=== PATIENT | female | born 1960 | race Caucasian/White ===

== ENCOUNTER → 2016-12-30 | Outpatient (CLI) | payer OTHER ==
--- NOTE | 2016-12-30 13:18 | XR ---
EXAMINATION TYPE: XR chest 2V DATE OF EXAM: 12/30/2016 COMPARISON: Chest x-ray April 21, 2016. HISTORY: Shortness of breath. TECHNIQUE: Frontal and lateral views of the chest are obtained. FINDINGS: There is no focal air space opacity, pleural effusion, or pneumothorax seen. The cardiac silhouette size is within normal limits. There is atherosclerotic change in aortic knob. The osseous structures are intact. IMPRESSION: No acute cardiopulmonary process currently.
[2016-12-31 14:19] LABS: Alternaria alternata IgE <0.35 kU/L (<0.35); Asperg. fumagatus IgE <0.35 kU/L (<0.35); Asperg. fumagatus IgE Class CLASS 0; Birch(Com.Silvr) IgE Class CLASS 0; Cat Epith & Dander IgE <0.35 kU/L (<0.35); Cat Epith & Dander IgE Class CLASS 0; Clad herbarum IgE <0.35 kU/L (<0.35); Clad herbarum IgE Class CLASS 0; Common Ragweed IgE Class CLASS 0; Dermato. Pteronyssinus Class CLASS 0; Dermato. Pteronyssinus IgE <0.35 kU/L (<0.35); Dermato. farinae IgE <0.35 kU/L (<0.35); Dermato. farinae IgE Class CLASS 0; IgE (Allergen) 56.1 IU/mL (<114.0); Maple (Box Elder) IgE <0.35 kU/L (<0.35); Maple (Box Elder) IgE Class CLASS 0; Mountain Cedar IgE <0.35 kU/L (<0.35); Mountain Cedar IgE Class CLASS 0; Mouse Urine IgE Class CLASS 0; Mouse Urine Proteins,IgE <0.35 kU/L (<0.35); Mulberry IgE Class CLASS 0; Nettle IgE <0.35 kU/L (<0.35); Nettle IgE Class CLASS 0; Oak IgE <0.35 kU/L (<0.35); Penicillium notatum IgE Class CLASS 0; Rough Marshelder IgE <0.35 kU/L (<0.35); Rough Marshelder IgE Class CLASS 0; Timothy Grass IgE <0.35 kU/L (<0.35); Timothy Grass IgE Class CLASS 0; White Ash IgE Class CLASS 0
== END | disposition home or self-care (01) ==
LOC: LABWHC1 12:11
PROVIDERS: ATTEND Internal Medicine
DX: R06.02 Shortness of breath (principal); B44.89 Other forms of aspergillosis
CPT/HCPCS: 36415; 71020; 82785; 86001; 86003; 86606; 86609

== ENCOUNTER 2017-02-06 07:02 | Day surgery (SDC) | payer OTHER ==
[2017-02-03 10:15] VITALS: BMI 33.3
[~2017-02-06 07:02] MED LIST: DEXAMETHASONE SOD PHOSPHATE 10 MG/ML 1 ML VIAL IV ONE; HYDROmorphone 1 MG/ML 1 ML SYRINGE IVP PRN; LACTATED RINGERS 1,000 ML IV SCH; MIDAZOLAM 2 MG/2 ML VIAL IV PRN; ONDANSETRON 4 MG/2 ML VIAL IVP ONE; Pre Op ABX Message 1 EACH MISC MISCELLANE ONE; SCOPOLAMINE 1.5MG/72HR PATCH TRANSDERM ONE
[2017-02-06] MEDS ORDERED: LIDOCAINE 1% 20 ML VIAL (10MG/ML) FOR IV START INTRADERMA ONE (07:29)
[2017-02-06] MEDS ORDERED: SODIUM CHLORIDE 0.9% 100 ML with ceFAZolin 2,000 MG IV ONE ×2 (07:36)
[2017-02-06] MEDS ORDERED: PROPOFOL 10 MG/ML 20 ML VIAL IV ONE (07:36)
[2017-02-06] MEDS ORDERED: LIDOCAINE 1% INJ 10MG/ML (20 ML MDV) ONE (07:36)
[2017-02-06] MEDS ORDERED: MIDAZOLAM 2 MG/2 ML VIAL ONE (07:36)
[2017-02-06] MEDS ORDERED: CLINDAMYCIN 600 MG in SODIUM CHLORIDE 0.9% 1,000 ML IRRIGATION ONE (07:36)
[2017-02-06] MEDS ORDERED: KETOROLAC 30 MG/ML 1 ML VIAL ONE (07:36)
[2017-02-06] MEDS ORDERED: fentaNYL (PF) 50 MCG/ML 2 ML AMP ONE (07:36)
[2017-02-06] MEDS ORDERED: SUCCINYLCHOLINE CHLORIDE 100 MG/5 ML SYR IV ONE (07:36)
[2017-02-06 08:16] VITALS: TEMP 97.6
[2017-02-06] MEDS ORDERED: LACTATED RINGERS 1,000 ML IV ONE ×2 (08:30)
[2017-02-06] MEDS ORDERED: HYDROcodone/APAP 5-325MG 1 EACH TAB PO ONE (09:10)
[2017-02-06 09:13] VITALS: RESP 18
[2017-02-06 09:36] VITALS: BP 107/60; PULSE 84
--- NOTE | 2017-02-06 18:56 | OP ---
DATE OF SURGERY: 02/06/2017 SURGEON: Neo Curry DO EARTH SCIENCE TEACHER: none PREOPERATIVE DIAGNOSIS: Unresolved hematoma/seroma of the right medial aspect of the leg. POSTOPERATIVE DIAGNOSIS: Unresolved hematoma/seroma of the right medial aspect of the leg. PROCEDURE: Incision and drainage of the hematoma/seroma, right medial leg, with Eleazar drain insertion. PROCEDURE: Patient was taken to the operative suite and placed in supine position. General inhalation anesthesia was performed by the department of anesthesiology. A Betadine prep was carried out over the right leg and sterile drapes were applied in the usual manner. A 1-inch incision was developed over the anteromedial aspect of the hematoma. Blunt dissection through subcutaneous tissue performed. Culture and sensitivity were obtained. Irrigation with antibiotic solution was carried out. An incision of seroma and hematoma was carried out at this time. No sign of infection at this time. [place] drain was inserted next to the wound. Betadine, Adaptic, ABD and Webril compression dressing was applied. Patient was transferred to the recovery room in satisfactory postoperative condition. GROSS PATHOLOGY: There was evidence of a hematoma/seroma, anteromedial aspect of the right leg in the tibial area. Placed on antibiotics at the time of discharge. TAMICA
== END 2017-02-06 09:57 | disposition home or self-care (01) ==
LOC: OR 07:02
PROVIDERS: ATTEND Orthopaedic Surgery
DX: S80.01XA Contusion of right knee, initial encounter (principal); X58.XXXA Exposure to other specified factors, initial encounter; Z96.653 Presence of artificial knee joint, bilateral; E78.5 Hyperlipidemia, unspecified; F32.9 Major depressive disorder, single episode, unspecified; J98.4 Other disorders of lung; G40.909 Epilepsy, unspecified, not intractable, without status epilepticus; I11.9 Hypertensive heart disease without heart failure; G47.33 Obstructive sleep apnea (adult) (pediatric); J44.9 Chronic obstructive pulmonary disease, unspecified; E89.0 Postprocedural hypothyroidism; K25.9 Gastric ulcer, unspecified as acute or chronic, without hemorrhage or perforation; K21.9 Gastro-esophageal reflux disease without esophagitis; Z85.42 Personal history of malignant neoplasm of other parts of uterus; Z79.82 Long term (current) use of aspirin; Z79.899 Other long term (current) drug therapy; Z88.5 Allergy status to narcotic agent; Z88.0 Allergy status to penicillin; Z91.048 Other nonmedicinal substance allergy status; F17.200 Nicotine dependence, unspecified, uncomplicated
CPT/HCPCS: 87070; 87205; 87075; 10140; J2250; J1100; J2405; J0690; J2001; J3010; J1885; J0330; J2704

== ENCOUNTER → 2017-03-26 | Outpatient (CLI) | payer OTHER ==
--- NOTE | 2017-03-26 10:13 | CT ---
EXAMINATION TYPE: CT brain wo con DATE OF EXAM: 03/26/2017 COMPARISON: MRI brain report dated 07/30/2010 HISTORY: Left-sided numbness with prior CVA CT DLP: 1147 mGycm. Automated Exposure Control for Dose Reduction was Utilized. TECHNIQUE: CT scan of the head is performed without contrast. FINDINGS: There is no acute intracranial hemorrhage, mass effect, or midline shift identified. The previously described few areas of nonspecific white matter change are not visualized on CT. No focal areas of encephalomalacia are seen from the patient's reported prior CVA. The ventricles and sulci ar e within normal limits in size. The globes are intact and the visualized sinuses are clear. No suspi cious extra-axial fluid collection is seen. Minimal atherosclerosis is seen of the intracranial vascu lature. Incidental note is made of a partial empty sella. IMPRESSION: No acute intracranial hemorrhage, mass effect, or midline shift is seen. No evidence of acute territorial infarct. MRI could be performed for further evaluation if clinically indicated.
== END | disposition home or self-care (01) ==
LOC: RADCTMAIN 09:23
PROVIDERS: ATTEND Internal Medicine
DX: G45.9 Transient cerebral ischemic attack, unspecified (principal)
CPT/HCPCS: 70450

== ENCOUNTER → 2017-04-28 | Outpatient (CLI) | payer OTHER ==
--- NOTE | 2017-04-28 08:49 | US ---
EXAMINATION TYPE: US carotid duplex BILAT DATE OF EXAM: 04/28/2017 COMPARISON: US, MR CLINICAL HISTORY: 56-year-old female G40.209 Localized Symptomatic epilepsy w cmplx. Left sided numbn ess. TECHNIQUE: Carotid duplex ultrasound examination. In the right Doppler criteria was utilized. FINDINGS: Grayscale images show moderate atherosclerotic changes at the right greater than left bifurcations. EXAM MEASUREMENTS: RIGHT: Peak Systolic Velocity (PSV) cm/sec ----- Right CCA: 63.8 ----- Right ICA: 136.6* ----- Right ECA: 87.5 ICA/CCA ratio: 2.1 RIGHT: End Diastole cm/sec ----- Right CCA: 24.6 ----- Right ICA: 49.4 ----- Right ECA: 17.1 LEFT: Peak Systolic Velocity (PSV) cm/sec ----- Left CCA: 75.6 ----- Left ICA: 102.9 ----- Left ECA: 125.3 ICA/CCA ratio: 1.4 LEFT: End Diastole cm/sec ----- Left CCA: 28.4 ----- Left ICA: 40.2 ----- Left ECA: 15.5 VERTEBRALS (direction of flow): Right Vertebral: Antegrade Left Vertebral: Antegrade Rhythm: Normal IMPRESSION: Moderate atherosclerotic changes at both bifurcations. Measurements suggest AP moderate (50-69%) sten osis at the proximal right ICA. Criteria for Assigning % of Stenosis / Diameter reduction (Estimation based on the indirect measurements of the internal carotid artery velocities (ICA PSV). 1. Normal (no stenosis)=ICA PSV < 125 cm/s: ratio < 2.0: ICA EDV<40 cm/s. 2. Less than 50% stenosis=ICA PSV < 125 cm/s: ratio < 2.0: ICA EDV<40 cm/s. 3. 50 to 69% stenosis=ICA PSV of 125 to 230 cm/s: ration 2.0 ? 4.0: ICA EDV 40-100 cm/s. 4. Greater than 70% stenosis to near occlusion= ICA PSV > 230 cm/s: ratio > 4.0: ICA EDV > 100 cm/s. 5. Near occlusion= ICA PSV velocities may be low or undetectable: variable ratio and ICA EDV. 6. Total occlusion=unable to detect flow.
== END | disposition home or self-care (01) ==
LOC: RADUSWWP 07:45
PROVIDERS: ATTEND Psychiatry & Neurology Neurology
DX: I65.23 Occlusion and stenosis of bilateral carotid arteries (principal); G40.209 Localization-related (focal) (partial) symptomatic epilepsy and epileptic syndromes with complex partial seizures, not intractable, without status epilepticus
CPT/HCPCS: 93880

== ENCOUNTER → 2017-05-18 | Outpatient (CLI) | payer OTHER ==
[2017-05-18 07:49] LABS: CH 29.2; CHCM 31.8; HCT 44.9 % (34.0-46.0); HDW 2.56; HGB 14.3 gm/dL (11.4-16.0); MCH 29.3 pg (25.0-35.0); MCHC 31.8 g/dL (31.0-37.0); MCV 92.1 fL (80.0-100.0); Mean Platelet Volume 8.7; RBC 4.87 m/uL (3.80-5.40); RDW 14.6 % (11.5-15.5); WBC 4.7 k/uL (3.8-10.6)
[2017-05-18 08:36] LABS: ALT 31 U/L (9-52); AST 20 U/L (14-36); Alkaline Phosphatase 66 U/L (38-126); Anion Gap 8 mmol/L; Blood Urea Nitrogen 17 mg/dL (7-17); Calcium 9.6 mg/dL (8.4-10.2); Carbon Dioxide 25 mmol/L (22-30); Chloride 108 mmol/L (98-107); Cholesterol 224 mg/dL (<200); Glucose 92 mg/dL (74-99); HDL Cholesterol 48 mg/dL (40-60); Non-African American GFR(MDRD) >60 (>60 ml/min/1.73 sqM); Potassium 4.6 mmol/L (3.5-5.1); Sodium 141 mmol/L (137-145); Total Bilirubin 0.2 mg/dL (0.2-1.3); Total Protein 6.9 g/dL (6.3-8.2)
--- NOTE | 2017-05-18 11:29 | MR ---
EXAMINATION TYPE: MR angio neck wo/w con DATE OF EXAM: 05/18/2017 COMPARISON: Ultrasound 04/28/2017 HISTORY: Left side numbness, Abnormal Carotid Duplex scan CONTRAST: Standard multiplanar, multisequence MRI departmental protocol utilizing 9.5 mL intravenous Gadavist g adolinium contrast. FINDINGS: Exam is severely limited by artifact and secondary to motion. Grossly the right vertebral artery is dominant. Grossly the common carotid arteries appear to be jane nt could not accurately assess for stenosis given the amount of artifact. Exam is felt to be nondiagn ostic. Suspect there is atherosclerotic plaque at the origin of both internal carotid arteries. Due t o the motion artifact and not accurately assess the degree of stenosis. IMPRESSION: Nondiagnostic exam due to motion artifact.
--- NOTE | 2017-05-18 11:41 | MR ---
EXAMINATION TYPE: MR brain wo con DATE OF EXAM: 05/18/2017 COMPARISON: NONE HISTORY: Left side numbness, Abnormal Carotid Duplex scan Technique: T1-weighted sagittal, T2, FLAIR, and diffusion axial, and T2 coronal coronal views of the brain are submitted. Exam limited by motion artifact. FINDINGS: Exam limited by motion artifact. There is no evidence of acute ischemia. The ventricles, basal cisterns, and sulci overlying the conv exities are consistent with the patient's age. There is no mass effect. Craniocervical junction maintained. Sella turcica has a normal appearance. No cerebellopontine angle mass. Changes of chronic right mastoiditis noted. Changes of chronic sinusi tis noted. There are a few scattered (approximately 7) areas of abnormal signal the white matter measuring less than 5 mm. Findings are nonspecific. IMPRESSION: 1. Limited exam due to motion artifact demonstrates no obvious acute intracranial process. 2. Minimal nonspecific white matter changes. Differential diagnosis includes migraine headaches, hype rtension, remote microvascular ischemia. Demyelinating process not entirely excluded.
== END | disposition home or self-care (01) ==
LOC: RADMRIMAIN 07:13
PROVIDERS: ATTEND Psychiatry & Neurology Neurology
DX: R90.89 Other abnormal findings on diagnostic imaging of central nervous system (principal); G40.209 Localization-related (focal) (partial) symptomatic epilepsy and epileptic syndromes with complex partial seizures, not intractable, without status epilepticus; I11.9 Hypertensive heart disease without heart failure; R73.9 Hyperglycemia, unspecified; K21.0 Gastro-esophageal reflux disease with esophagitis; R20.0 Anesthesia of skin; R94.39 Abnormal result of other cardiovascular function study; Z00.00 Encounter for general adult medical examination without abnormal findings
CPT/HCPCS: 84439; 80061; 80053; 80177; 84443; 85027; 83036; 70549; 70551; 36415; A9581

== ENCOUNTER → 2017-08-28 | Outpatient (CLI) | payer OTHER ==
--- NOTE | 2017-08-28 17:50 | ECHOF ---
Referral Reason:Z86.73 Hx of Transiant ischemic attack MEASUREMENTS -------- HEIGHT: 157.5 cm WEIGHT: 93.0 kg BP: RVIDd: 3.0 cm (< 3.3) IVSd: 1.1 cm (0.6 - 1.1) LVIDd: 4.0 cm (3.9 - 5.3) LVPWd: 1.0 cm (0.6 - 1.1) IVSs: 1.3 cm LVIDs: 3.0 cm LVPWs: 1.4 cm LA Diam: 2.8 cm (2.7 - 3.8) LAESV Index (A-L): 33.26 ml/m Ao Diam: 3.0 cm (2.0 - 3.7) AV Cusp: 1.1 cm (1.5 - 2.6) LA Diam: 3.1 cm (2.7 - 3.8) MV EXCURSION: 22.907 mm (> 18.000) MV EF SLOPE: 78 mm/s (70 - 150) EPSS: 0.6 cm MV E Levi: 0.63 m/s MV DecT: 212 ms MV A Levi: 0.68 m/s MV E/A Ratio: 0.93 AV maxP.80 mmHg AV meanP.76 mmHg RAP: 5.00 mmHg RVSP: 19.96 mmHg FINDINGS -------- Sinus rhythm. This was a technically adequate study. The left ventricular size is normal. There is mild concentric left ventricular hypertrophy. Overa ll left ventricular systolic function is normal with, an EF between 55 - 60 %. The right ventricle is normal in size. LA is midly dilated 29-33ml/m2. The right atrial size is normal. The aortic valve was not well visualized. Peak/mean gradient across the Aortic Valve is 20.80mmHg / 10.76mmHg. Can't exclude possible Bicuspid Aov. The mitral valve leaflets are mildly thickened. There is trace to mild mitral regurgitation. Mild tricuspid regurgitation present. There is no evidence of pulmonary hypertension. The right v entricular systolic pressure, as measured by Doppler, is 19.96mmHg. There is no pulmonic regurgitation present. The aortic root size is normal. There is no pericardial effusion. CONCLUSIONS -------- 1. Sinus rhythm. 2. The left ventricular size is normal. 3. There is mild concentric left ventricular hypertrophy. 4. Overall left ventricular systolic function is normal with, an EF between 55 - 60 %. 5. LA is midly dilated 29-33ml/m2. 6. The aortic valve was not well visualized. 7. Peak/mean gradient across the Aortic Valve is 20.80mmHg / 10.76mmHg. 8. Can't exclude possible Bicuspid Aov. 9. The mitral valve leaflets are mildly thickened. 10. There is trace to mild mitral regurgitation. 11. Mild tricuspid regurgitation present. 12. There is no evidence of pulmonary hypertension. 13. There is no pulmonic regurgitation present. 14. The aortic root size is normal. 15. There is no pericardial effusion. CONTROLLED ATMOSPHERIC FURNACE BRAZER: Rozina Christensen RDCS
== END | disposition home or self-care (01) ==
LOC: RADECHMAIN 13:01
PROVIDERS: ATTEND Psychiatry & Neurology Neurology
DX: Z09 Encounter for follow-up examination after completed treatment for conditions other than malignant neoplasm (principal); I08.1 Rheumatic disorders of both mitral and tricuspid valves; Z86.73 Personal history of transient ischemic attack (TIA), and cerebral infarction without residual deficits
CPT/HCPCS: 93306

== ENCOUNTER → 2017-10-12 | Outpatient (CLI) | payer OTHER ==
[2017-10-14 11:48] LABS: Alt. alternata IgE Class CLASS 0; Alternaria alternata IgE <0.35 kU/L (<0.35); Asperg. fumagatus IgE <0.35 kU/L (<0.35); Asperg. fumagatus IgE Class CLASS 0; Bermuda Grass IgE <0.35 kU/L (<0.35); Birch(Com.Silvr) IgE <0.35 kU/L (<0.35); Birch(Com.Silvr) IgE Class CLASS 0; Cat Epith & Dander IgE <0.35 kU/L (<0.35); Cat Epith & Dander IgE Class CLASS 0; Clad herbarum IgE <0.35 kU/L (<0.35); Cockroach IgE <0.35 kU/L (<0.35); Cottonwood IgE <0.35 kU/L (<0.35); Dermato. Pteronyssinus IgE <0.35 kU/L (<0.35); Dermato. farinae IgE <0.35 kU/L (<0.35); Dermato. farinae IgE Class CLASS 0; Dog Dander IgE <0.35 kU/L (<0.35); Elm IgE <0.35 kU/L (<0.35); Maple (Box Elder) IgE <0.35 kU/L (<0.35); Maple (Box Elder) IgE Class CLASS 0; Mountain Cedar IgE <0.35 kU/L (<0.35); Mountain Cedar IgE Class CLASS 0; Mouse Urine IgE Class CLASS 0; Nettle IgE <0.35 kU/L (<0.35); Nettle IgE Class CLASS 0; Oak IgE <0.35 kU/L (<0.35); Penicillium notatum IgE Class CLASS 0; Rough Marshelder IgE <0.35 kU/L (<0.35); Rough Marshelder IgE Class CLASS 0; Timothy Grass IgE <0.35 kU/L (<0.35); White Ash IgE Class CLASS 0
== END | disposition home or self-care (01) ==
LOC: LABWHC1 07:12
PROVIDERS: ATTEND Internal Medicine Sleep Medicine
DX: B44.81 Allergic bronchopulmonary aspergillosis (principal)
CPT/HCPCS: 36415; 82785; 86001; 86003; 86606; 86609

== ENCOUNTER → 2018-03-02 | Outpatient (CLI) | payer OTHER ==
--- NOTE | 2018-03-03 12:04 | MM ---
Reason for exam: screening (asymptomatic). Last mammogram was performed 2 years and 3 months ago. History: Patient is postmenopausal, has history of other cancer at age 48, and has history of endometrial cancer at age 37. Family history of breast cancer in maternal aunt and premenopausal breast cancer in mother at age 45. Took estrogen for 6 months beginning at age 47. Physical Findings: A clinical breast exam by your physician is recommended on an annual basis and results should be correlated with mammographic findings. MG Screening Mammo w CAD Bilateral CC and MLO view(s) were taken. Prior study comparison: December 11, 2015, bilateral MG screening mammo w CAD. June 19, 2014, bilateral MG screening mammo w CAD. There are scattered fibroglandular densities. There is no discrete abnormality. No significant changes when compared with prior studies. ASSESSMENT: Negative, BI-RAD 1 RECOMMENDATION: Routine screening mammogram of both breasts in 1 year.
== END | disposition home or self-care (01) ==
LOC: RADMAMWWP 13:18
PROVIDERS: ATTEND Internal Medicine
DX: Z12.31 Encounter for screening mammogram for malignant neoplasm of breast (principal)
CPT/HCPCS: 77067

== ENCOUNTER → 2018-04-02 | Outpatient (CLI) | payer OTHER | LOC: LABWHC1 08:39 | PROVIDERS: ATTEND Psychiatry & Neurology Neurology | DX: G40.209 Localization-related (focal) (partial) symptomatic epilepsy and epileptic syndromes with complex partial seizures, not intractable, without status epilepticus (principal) | CPT/HCPCS: 36415; 80177 ==

== ENCOUNTER → 2019-03-28 | Outpatient (CLI) | payer OTHER ==
--- NOTE | 2019-03-29 10:16 | MM ---
Reason for exam: screening (asymptomatic). Last mammogram was performed 1 year and 1 month ago. History: Patient is postmenopausal, has history of other cancer at age 48, and has history of endometrial cancer at age 37. Family history of breast cancer in maternal aunt and premenopausal breast cancer in mother at age 45. Took estrogen for 6 months beginning at age 47. Physical Findings: A clinical breast exam by your physician is recommended on an annual basis and results should be correlated with mammographic findings. MG Screening Mammo w CAD Bilateral CC and MLO view(s) were taken. Prior study comparison: March 02, 2018, bilateral MG screening mammo w CAD. December 11, 2015, bilateral MG screening mammo w CAD. There are scattered fibroglandular densities. No suspicious abnormality. No significant changes when compared with prior studies. ASSESSMENT: Negative, BI-RAD 1 RECOMMENDATION: Routine screening mammogram of both breasts in 1 year. Manage on a clinical basis with regard to nonfocal, intermittent left pain. If focal or persistent, diagnostic mammogram and ultrasound recommended.
== END | disposition home or self-care (01) ==
LOC: RADMAMWWP 13:33
PROVIDERS: ATTEND Internal Medicine
DX: Z12.31 Encounter for screening mammogram for malignant neoplasm of breast (principal)
CPT/HCPCS: 77067

== ENCOUNTER → 2019-05-11 | Outpatient (CLI) | payer OTHER ==
[2019-05-11 08:44] LABS: Basophils # (A) 0.1 k/uL (0-0.2); Basophils % (A) 1 %; Eosinophils % (A) 0 %; Lymphocytes # (A) 0.7 k/uL (1.0-4.8); Lymphocytes % (A) 6 %; MCV 90.5 fL (80.0-100.0); Mean Platelet Volume 8.6; Monocytes # (A) 0.5 k/uL (0-1.0); Monocytes % (A) 4 %; Neutrophils # (A) 9.6 k/uL (1.3-7.7); Neutrophils % (A) 88 %; Platelet Count 204 k/uL (150-450); RBC 5.19 m/uL (3.80-5.40); RDW 13.7 % (11.5-15.5)
[2019-05-11 16:05] LABS: African American GFR (CKD) 112.3 (60.0-200.0); Albumin 4.2 g/dL (3.80-4.90); Albumin/Globulin Ratio 2.21 (1.60-3.17); Anion Gap 9.4 mmol/L (4.00-12.00); BUN/Creat Ratio 31.43 Ratio (12.00-20.00); Calcium 9.1 mg/dL (8.7-10.3); Carbon Dioxide 23.6 mmol/L (21.6-31.8); Chol/HDL Ratio 4.68; Globulin 1.9 g/dL (1.6-3.3); LDL Cholesterol,Calculated 134.6 mg/dL (0.0-131.0); Non-African American GFR(CKD) 96.9 (60.0-200.0); Potassium 4.7 mmol/L (3.5-5.5); Total Bilirubin 0.2 mg/dL (0.3-1.2); Total Protein 6.1 g/dL (6.2-8.2); VLDL Calculation 27.4 mg/dL (5.00-40.00)
[2019-05-11 16:16] LABS: T4, Free (Free Thyroxine) 0.8 ng/dL (0.80-1.80)
[2019-05-11 18:09] LABS: Hemoglobin A1C 5.7 % (4.0-6.0)
== END ==
LOC: LABWHC1 07:55
PROVIDERS: ATTEND Internal Medicine
DX: E87.8 Other disorders of electrolyte and fluid balance, not elsewhere classified (principal); D64.9 Anemia, unspecified; J44.9 Chronic obstructive pulmonary disease, unspecified; E78.5 Hyperlipidemia, unspecified; E03.9 Hypothyroidism, unspecified; N20.0 Calculus of kidney; E66.9 Obesity, unspecified; E55.9 Vitamin D deficiency, unspecified
CPT/HCPCS: 36415; 80053; 80061; 83036; 84439; 84443; 85025

== ENCOUNTER 2019-05-16 03:09 | Emergency (ER) | payer OTHER ==
[2019-05-16 03:19] VITALS: TEMP 98.4
[2019-05-16] MEDS ORDERED: SODIUM CHLORIDE 0.9% 1,000 ML IV STA (03:31)
[2019-05-16 03:55] LABS: Basophils # (A) 0.2 k/uL (0-0.2); Basophils % (A) 2 %; Eosinophils # (A) 0.3 k/uL (0-0.7); Eosinophils % (A) 3 %; HCT 46.2 % (34.0-46.0); HGB 15.4 gm/dL (11.4-16.0); Lymphocytes % (A) 11 %; MCHC 33.3 g/dL (31.0-37.0); MCV 90.1 fL (80.0-100.0); Mean Platelet Volume 8.3; Monocytes # (A) 0.7 k/uL (0-1.0); Monocytes % (A) 7 %; Neutrophils # (A) 7.1 k/uL (1.3-7.7); Neutrophils % (A) 75 %; Platelet Count 159 k/uL (150-450); RBC 5.13 m/uL (3.80-5.40); RDW 13.8 % (11.5-15.5); WBC 9.5 k/uL (3.8-10.6)
--- NOTE | 2019-05-16 03:55 | ED ---
Abdominal Pain HPI - General Chief Complaint: Abdominal Pain Stated Complaint: Abd Pain, Vomiting Time Seen by Provider: 05/16/19 03:31 Source: patient, family Mode of arrival: ambulatory Limitations: no limitations - History of Present Illness Initial Comments: Roselia is a 58-year-old female with extensive past medical history presenting the ER today for evaluation of abdominal pain. Patient reports that over the past day she noticed staple in her belly button that she believes is from her previous surgery. Patient's concern that this is popped out from the skin. She reports pain in her belly button and down her abdomen. Patient also reports p urulent drainage and malodorous discharge from her belly button. Patient reports some abdominal crampy, nausea no vomiting no diarrhea no constipation. No fevers chills chest pain or shortness of breath. Patient does suffer from COPD but reports this is managed with her home medications. Dysuria or hematuria. Patient states she's not certain what is going on because she cannot see her belly button her lower abdomen. - Related Data Home Medications Medication Instructions Recorded Confirmed Albuterol Sulfate [Ventolin HFA] 2 puff INHALATION RT-BID PRN 12/30/13 02/06/17 Omeprazole 20 mg PO BID 12/30/13 02/06/17 Celecoxib 200 mg PO BID 11/15/14 02/06/17 Cyclobenzaprine [Flexeril] 10 mg PO HS 11/15/14 02/06/17 Gabapentin 300 mg PO TID 11/15/14 02/06/17 Diclofenac Sodium [Voltaren] 75 mg PO BID 05/01/16 02/06/17 Montelukast [Singulair] 10 mg PO HS 05/01/16 02/06/17 prednisoLONE ACETATE 1% OPHTH 1 drops BOTH EYES QID 05/01/16 02/06/17 [Pred Forte 1%] levETIRAcetam [levETIRAcetam Oral 1,000 mg PO HS 05/02/16 02/06/17 Solution] levETIRAcetam [levETIRAcetam Oral 500 mg PO BID 05/02/16 02/06/17 Solution] Mometasone/Formoterol [Dulera 200 1 puff INHALATION DAILY 02/03/17 02/06/17 Mcg/5 Mcg Inhaler] Sennosides-Docusate Sodium 1 tab PO BID PRN 02/03/17 02/06/17 [Senokot-S] Enalapril [Vasotec] 10 mg PO DAILY 02/06/17 02/06/17 Previous Rx's Medication Instructions Recorded HYDROcodone/APAP 5-325MG [[place] 1 - 2 each PO Q4-6H PRN #90 tab 05/03/16 5-325] Diazepam [Valium] 5 mg PO TID PRN #30 tab 05/05/16 Nystatin 100,000 Unit/gm Powd 1 applic TOPICAL BID #1 bottle 05/16/19 [Mycostatin Powder] Allergies Allergy/AdvReac Type Severity Reaction Status Date / Time adhesive Allergy blisters Verified 05/16/19 03:17 and taylor skin Penicillins Allergy Rash/Hives Verified 05/16/19 03:17 morphine AdvReac Nausea & Verified 05/16/19 03:17 Vomiting Review of Systems ROS Statement: Those systems with pertinent positive or pertinent negative responses have been documented in the HPI. ROS Other: All systems not noted in ROS Statement are negative. Past Medical History Past Medical History: Asthma, Cancer, COPD, CVA/TIA, Eye Disorder, Fibromyalgia, GERD/Reflux, GI Bleed, Hyperlipidemia, Hypertension, Memory Impairment, Musculoskeletal Disorder, Osteoarthritis (OA), Rheumatoid Arthritis (RA), Se izure Disorder, Sleep Apnea/CPAP/BIPAP Additional Past Medical History / Comment(s): CVA 2005 with R leg weakness and R hand tremors, UTERINE AND CERVICAL CA 2005 THYROID CA 2003 BEGINNING OF CATARACTS bilaterally, LAST SEIZURE-2005, HAS LARGE LUMP TO RT LEG R/T RECENT FALL. BILAT GLAUCOMA History of Any Multi-Drug Resistant Organisms: None Reported Past Surgical History: Bariatric Surgery, Section, Hernia Repair, Hysterectomy, Joint Replacement, Orthopedic Surgery, Tonsillectomy Additional Past Surgical History / Comment(s): BILAT TKA, RT ROTATOR CUFF REPAIR, CYSTS REMOVED BILAT WRISTS,RT SKNEE SX X 2,THYROID SX,PAIN CLINIC PROCEDURES,BILAT EYE SX,GASTRIC BYPASS 1984,Laser surgery BILAT eye FOR GLAUCOMA, COLONOSCOPY AND EGD Past Anesthesia/Blood Transfusion Reactions: Previous Problems w/ Anesthesia, Postoperative Nausea & Vomiting (PONV) Additional Past Anesthesia/Blood Transfusion Reaction / Comment(s): difficulty arousing Past Psychological History: Anxiety, Depression Smoking Status: Current every day smoker Past Alcohol Use History: None Reported Past Drug Use History: None Reported - Past Family History Mother Family Medical History: Cancer diabetes, CHF, cancer, blood disease Family Medical History: Cancer, Diabetes Mellitus General Exam - General Exam Comments Initial Comments: Physical Exam GENERAL: Obese female in no acute distress HENT: Normocephalic, Atraumatic. EYES: PERRL, EOMI PULMONARY: Wheezes throughout, no respiratory distress CARDIOVASCULAR: There is a regular rate and rhythm without any murmurs gallops or rubs. ABDOMEN: Soft and nontender with normal bowel sounds. SKIN: In breakdown of the abdominal pannus, purulent discharge from the umbilicus There is noted to be a skin staple at the umbilicus, appears old : Deferred NEUROLOGIC: Patient is alert and oriented x3. Moving all extremities spontaneously MUSCULOSKELETAL: Normal extremities with adequate strength and full range of motion. No lower extremity swelling or edema. No calf tenderness. PSYCHIATRIC: Normal psychiatric evaluation. Limitations: no limitations Course Vital Signs 05/16/19 05/16/19 03:13 06:25 Temperature 98.4 F 98.4 F Pulse Rate 55 L 62 Respiratory 22 16 Rate Blood Pressure 133/86 137/74 O2 Sat by Pulse 97 95 Oximetry Medical Decision Making - Medical Decision Making The patient was seen and evaluated history is obtained from the patient Patient has skin breakdown and what appears to be a and it'll infection of the pannus, in addition there is a retained skin stable from a surgery the patient reports was 4-5 years ago. There is purulent discharge from this area. Cannot see the base of the umbilicus and there is. Discharge therefore computed tomography scan will be obtained. Labs were unremarkable, computed tomography scan with no acute findings. The staple was removed, the umbilicus and pannus were cleansed. Proper hygiene was discussed. All questions pertaining care were answered return parameters were discussed patient was discharged home in stable condition. - Lab Data Result diagrams: 05/16/19 03:37 05/16/19 03:37 Lab Results 05/16/19 05/16/19 05/16/19 Range/Units 03:37 03:37 03:37 WBC 9.5 (3.8-10.6) k/uL RBC 5.13 (3.80-5.40) m/uL Hgb 15.4 (11.4-16.0) gm/dL Hct 46.2 H (34.0-46.0) % MCV 90.1 (80.0-100.0) fL MCH 30.0 (25.0-35.0) pg MCHC 33.3 (31.0-37.0) g/dL RDW 13.8 (11.5-15.5) % Plt Count 159 (150-450) k/uL Neutrophils % 75 % Lymphocytes % 11 % Monocytes % 7 % Eosinophils % 3 % Basophils % 2 % Neutrophils # 7.1 (1.3-7.7) k/uL Lymphocytes # 1.0 (1.0-4.8) k/uL Monocytes # 0.7 (0-1.0) k/uL Eosinophils # 0.3 (0-0.7) k/uL Basophils # 0.2 (0-0.2) k/uL Sodium 140 (137-145) mmol/L Potassium 4.9 (3.5-5.1) mmol/L Chloride 106 (98-107) mmol/L Carbon Dioxide 25 (22-30) mmol/L Anion Gap 9 mmol/L BUN 23 H (7-17) mg/dL Creatinine 0.96 (0.52-1.04) mg/dL Est GFR (CKD-EPI)AfAm 77 (>60 ml/min/1.73 sqM) Est GFR (CKD-EPI)NonAf 66 (>60 ml/min/1.73 sqM) Glucose 150 H (74-99) mg/dL Plasma Lactic Acid Rolando 1.6 (0.7-2.0) mmol/L Calcium 9.3 (8.4-10.2) mg/dL Total Bilirubin 0.3 (0.2-1.3) mg/dL AST 23 (14-36) U/L ALT 27 (9-52) U/L Alkaline Phosphatase 67 (38-126) U/L Total Protein 6.7 (6.3-8.2) g/dL Albumin 4.1 (3.5-5.0) g/dL Amylase 51 (30-110) U/L Lipase 158 (23-300) U/L Urine Color Urine Appearance (Clear) Urine pH (5.0-8.0) Ur Specific [place] (1.001-1.035) Urine Protein (Negative) Urine Glucose (UA) (Negative) Urine Ketones (Negative) Urine Blood (Negative) Urine Nitrite (Negative) Urine Bilirubin (Negative) Urine Urobilinogen (<2.0) mg/dL Ur Leukocyte Esterase (Negative) Urine RBC (0-5) /hpf Urine WBC (0-5) /hpf Ur Squamous Epith Cells (0-4) /hpf Hyaline Casts (0-2) /lpf Urine Mucus (None) /hpf 05/16/19 Range/Units 03:37 WBC (3.8-10.6) k/uL RBC (3.80-5.40) m/uL Hgb (11.4-16.0) gm/dL Hct (34.0-46.0) % MCV (80.0-100.0) fL MCH (25.0-35.0) pg MCHC (31.0-37.0) g/dL RDW (11.5-15.5) % Plt Count (150-450) k/uL Neutrophils % % Lymphocytes % % Monocytes % % Eosinophils % % Basophils % % Neutrophils # (1.3-7.7) k/uL Lymphocytes # (1.0-4.8) k/uL Monocytes # (0-1.0) k/uL Eosinophils # (0-0.7) k/uL Basophils # (0-0.2) k/uL Sodium (137-145) mmol/L Potassium (3.5-5.1) mmol/L Chloride (98-107) mmol/L Carbon Dioxide (22-30) mmol/L Anion Gap mmol/L BUN (7-17) mg/dL Creatinine (0.52-1.04) mg/dL Est GFR (CKD-EPI)AfAm (>60 ml/min/1.73 sqM) Est GFR (CKD-EPI)NonAf (>60 ml/min/1.73 sqM) Glucose (74-99) mg/dL Plasma Lactic Acid [place] (0.7-2.0) mmol/L Calcium (8.4-10.2) mg/dL Total Bilirubin (0.2-1.3) mg/dL AST (14-36) U/L ALT (9-52) U/L Alkaline Phosphatase (38-126) U/L Total Protein (6.3-8.2) g/dL Albumin (3.5-5.0) g/dL Amylase (30-110) U/L Lipase (23-300) U/L Urine Color Yellow Urine Appearance Cloudy H (Clear) Urine pH 5.0 (5.0-8.0) Ur Specific [place] 1.029 (1.001-1.035) Urine Protein Trace H (Negative) Urine Glucose (UA) Negative (Negative) Urine Ketones Negative (Negative) Urine Blood Negative (Negative) Urine Nitrite Negative (Negative) Urine Bilirubin Negative (Negative) Urine Urobilinogen 2.0 (<2.0) mg/dL Ur Leukocyte Esterase Negative (Negative) Urine RBC 1 (0-5) /hpf Urine WBC 1 (0-5) /hpf Ur Squamous Epith Cells 4 (0-4) /hpf Hyaline Casts 19 H (0-2) /lpf Urine Mucus Many H (None) /hpf Disposition Clinical Impression: Encounter for staple removal, Skin yeast infection Disposition: HOME SELF-CARE Condition: Stable Instructions (If sedation given, give patient instructions): Skin Yeast Infection (ED) Prescriptions: Nystatin 100,000 Unit/gm Powd [Mycostatin Powder] 1 applic TOPICAL BID #1 bottle Is patient prescribed a controlled substance at d/c from ED?: No Referrals: Harshal Mcadams MD [Primary Care Provider] - 1-2 days
[2019-05-16 03:59] LABS: Appearance,Urine Cloudy (Clear); Bilirubin,Urine Negative (Negative); Blood,Urine Negative (Negative); Color,Urine Yellow; Glucose,Urine (UA) Negative (Negative); Hyaline Casts,Urine 19 /lpf (0-2); Ketones,Urine Negative (Negative); Leukocyte Esterase,Urine Negative (Negative); Mucus,Urine Many /hpf; Nitrite,Urine Negative (Negative); Protein,Urine Trace (Negative); RBC,Urine 1 /hpf (0-5); Specific Gravity,Urine 1.029 (1.001-1.035); Squamous Epithelial Cell,Urine 4 /hpf (0-4); WBC,Urine 1 /hpf (0-5)
[2019-05-16] MEDS ORDERED: fentaNYL (PF) 50 MCG/ML 2 ML AMP IVP PRN (04:03)
[2019-05-16 04:05] LABS: Albumin 4.1 g/dL (3.5-5.0); Calcium 9.3 mg/dL (8.4-10.2); Potassium 4.9 mmol/L (3.5-5.1); Total Bilirubin 0.3 mg/dL (0.2-1.3); Total Protein 6.7 g/dL (6.3-8.2)
--- NOTE | 2019-05-16 05:10 | XR ---
EXAM: XR Abdomen, 2 Views CLINICAL HISTORY: Abdominal pain. TECHNIQUE: Frontal view of the abdomen/pelvis with upright view of the abdomen. COMPARISON: 03/06/2011. FINDINGS: Lower thorax: No pleural effusions. Intraperitoneal space: Nonspecific bowel gas pattern. No free air. Gastrointestinal tract: Unremarkable. No dilation. Bones/joints: Unremarkable. Other findings: Postsurgical changes within the medial left upper quadrant are again noted, unchanged. Mild to moderate quantity of stool. IMPRESSION: Mild to moderate quantity of stool. No free air. Nonspecific bowel gas pattern.
--- NOTE | 2019-05-16 05:52 | CT ---
EXAM: CT Abdomen and Pelvis With Intravenous Contrast CLINICAL HISTORY: Abdominal pain. Abnormal drainage from the umbilicus. TECHNIQUE: Axial computed tomography images of the abdomen and pelvis with intravenous contrast. CTDI is 37.77 mGy and DLP is 1724.4 mGy-cm. This CT exam was performed using one or more of the following dose reduction techniques: automated exposure control, adjustment of the mA and/or kV according to patient size, and/or use of iterative reconstruction technique. COMPARISON: 12/06/2012. Plain film evaluations of 05/16/2019 of the abdomen and chest. FINDINGS: Lung bases: Evaluation of the right lung base reveals minimal subsegmental atelectasis medially in the right middle lobe. Evaluation of the left lung base reveals minimal subsegmental atelectasis within the lingula region. Heart: The heart is normal in size. ABDOMEN: Liver: Mild fatty infiltration of the liver is noted. Gallbladder and bile ducts: There is absence of the gallbladder suggestive cholecystectomy. No ductal dilation. Pancreas: See below. Spleen: The spleen enhances uniformly. Adrenals: The adrenal glands, the head, body, tail of the pancreas are within normal limits. Kidneys and ureters: Both kidneys are shown excrete contrast bilaterally. Minimal stranding about the perinephric spaces bilaterally, a nonspecific finding which requires clinical correlation peered No hydronephrosis. Stomach and bowel: Postsurgical changes about the stomach are noted. Moderate quantity of stool throughout the colon. No evidence of bowel obstruction. Postsurgical changes of the proximal sigmoid colon are noted. No mucosal thickening. PELVIS: Appendix: No findings to suggest acute appendicitis. Bladder: The bladder is underdistended, but grossly unremarkable. Reproductive: The patient is status post hysterectomy. ABDOMEN and PELVIS: Intraperitoneal space: Pelvic fluid bolus. No free air. Bones/joints: Mild to moderate degenerative disc disease of the spinal column is noted. Mild osteoarthritic changes about the sacroiliac joints. Alignment of the visualized track the lumbar spine is unremarkable. No acute fracture. Soft tissues: A 0.5 x 0.7 x 0.6 cm metallic foreign body is noted at the umbilicus of uncertain etiology. Clinical correlation is advised. Vasculature: Atherosclerotic disease of the abdominal aorta is noted extending to the common iliac arteries, without aneurysmal dilatation. Lymph nodes: Unremarkable. No enlarged lymph nodes. IMPRESSION: Postsurgical changes the stomach and the sigmoid colon. Mild fatty infiltration of the liver. No evidence of bowel obstruction. Minimal nonspecific stranding about the perinephric spaces bilaterally. Metallic foreign body at the umbilicus of uncertain etiology. Clinical correlation is advised. No active inflammatory process is detected.
[2019-05-16 06:26] VITALS: BP 137/74; PULSE 62; RESP 16
== END 2019-05-16 06:25 | disposition home or self-care (01) ==
LOC: EC 03:09
DX: B37.2 Candidiasis of skin and nail (principal); Z48.02 Encounter for removal of sutures; J44.9 Chronic obstructive pulmonary disease, unspecified; H40.9 Unspecified glaucoma; K21.9 Gastro-esophageal reflux disease without esophagitis; I10 Essential (primary) hypertension; M19.90 Unspecified osteoarthritis, unspecified site; M06.9 Rheumatoid arthritis, unspecified; G40.909 Epilepsy, unspecified, not intractable, without status epilepticus; G47.30 Sleep apnea, unspecified; F32.9 Major depressive disorder, single episode, unspecified; F41.9 Anxiety disorder, unspecified; F17.200 Nicotine dependence, unspecified, uncomplicated; Z88.0 Allergy status to penicillin; Z88.5 Allergy status to narcotic agent; Z91.048 Other nonmedicinal substance allergy status; Z79.1 Long term (current) use of non-steroidal anti-inflammatories (NSAID); Z79.51 Long term (current) use of inhaled steroids; Z79.52 Long term (current) use of systemic steroids; Z79.899 Other long term (current) drug therapy; Z85.41 Personal history of malignant neoplasm of cervix uteri; Z85.850 Personal history of malignant neoplasm of thyroid; Z98.84 Bariatric surgery status; Z90.710 Acquired absence of both cervix and uterus; Z96.653 Presence of artificial knee joint, bilateral; Z98.890 Other specified postprocedural states; Z99.89 Dependence on other enabling machines and devices
CPT/HCPCS: 36415; 80053; 82150; 83605; 83690; 85025; 81001; 74019; 74177; 99284; 96374; 96361 ×2; J3010; Q9967

== ENCOUNTER → 2019-07-25 | Outpatient (CLI) | payer OTHER ==
--- NOTE | 2019-07-25 12:37 | XR ---
EXAMINATION TYPE: XR chest 2V DATE OF EXAM: 07/25/2019 COMPARISON: 12/30/2016 HISTORY: COPD and shortness of breath TECHNIQUE: Frontal and lateral views of the chest are obtained. FINDINGS: Ill-defined lingular opacity is seen. Remainder of the lungs are clear. No focal consolida tion or pleural effusion. Flattening of the diaphragms on the lateral view suggests underlying COPD. Peribronchial cuffing is also seen on the lateral view. Mild multilevel degenerative change of the sp ine is evident. Cardia mediastinal silhouette is stable. IMPRESSION: 1. Patchy lingular opacity. Consider pneumonia. 2. Peribronchial cuffing could relate to reactive airway disease and underlying COPD or infectious ai rway disease such as bronchitis.
== END | disposition home or self-care (01) ==
LOC: RADXRMAIN 11:53
PROVIDERS: ATTEND Internal Medicine
DX: J98.4 Other disorders of lung (principal); M81.0 Age-related osteoporosis without current pathological fracture
CPT/HCPCS: 71046

== ENCOUNTER → 2020-05-11 | Outpatient (CLI) | payer OTHER ==
[2020-05-11 11:01] LABS: Basophils # (A) 0.1 k/uL (0-0.2); Basophils % (A) 1 %; Eosinophils # (A) 0.2 k/uL (0-0.7); Eosinophils % (A) 4 %; HCT 46.7 % (34.0-46.0); HGB 15.7 gm/dL (11.4-16.0); Lymphocytes # (A) 1.2 k/uL (1.0-4.8); Lymphocytes % (A) 28 %; MCH 29.7 pg (25.0-35.0); MCHC 33.6 g/dL (31.0-37.0); MCV 88.3 fL (80.0-100.0); Mean Platelet Volume 9.8; Monocytes # (A) 1.2 k/uL (0-1.0); Monocytes % (A) 26 %; Neutrophils # (A) 1.4 k/uL (1.3-7.7); Neutrophils % (A) 32 %; RBC 5.29 m/uL (3.80-5.40); RDW 13.1 % (11.5-15.5); WBC 4.4 k/uL (3.8-10.6)
[2020-05-11 15:42] LABS: African American GFR (CKD) 72.4 (60.0-200.0); Albumin 4.1 g/dL (3.80-4.90); Albumin/Globulin Ratio 1.95 (1.60-3.17); Anion Gap 5.9 mmol/L (4.00-12.00); Calcium 9.2 mg/dL (8.7-10.3); Carbon Dioxide 30.1 mmol/L (21.6-31.8); Chol/HDL Ratio 6.31; Globulin 2.1 g/dL (1.6-3.3); Non-African American GFR(CKD) 62.5 (60.0-200.0); Potassium 4.6 mmol/L (3.5-5.5); Total Bilirubin 0.3 mg/dL (0.3-1.2); Total Protein 6.2 g/dL (6.2-8.2)
[2020-05-11 18:43] LABS: Hemoglobin A1C 5.9 % (4.0-6.0)
== END | disposition home or self-care (01) ==
LOC: LABWHC1 09:19
PROVIDERS: ATTEND Internal Medicine
DX: J44.9 Chronic obstructive pulmonary disease, unspecified (principal); E11.65 Type 2 diabetes mellitus with hyperglycemia; E78.5 Hyperlipidemia, unspecified
CPT/HCPCS: 36415; 80053; 80061; 83036; 85025

== ENCOUNTER → 2020-11-12 | Outpatient (CLI) | payer OTHER ==
--- NOTE | 2020-11-14 08:56 | MM ---
Reason for exam: screening (asymptomatic). Last mammogram was performed 1 year and 8 months ago. History: Patient is postmenopausal, has history of other cancer at age 48, and has history of endometrial cancer at age 37. Family history of breast cancer in maternal aunt and premenopausal breast cancer in mother at age 45. Took estrogen for 6 months beginning at age 47. Physical Findings: A clinical breast exam by your physician is recommended on an annual basis and results should be correlated with mammographic findings. MG Screening Mammo w CAD Bilateral CC and MLO view(s) were taken. Prior study comparison: March 28, 2019, bilateral MG screening mammo w CAD. March 02, 2018, bilateral MG screening mammo w CAD. There are scattered fibroglandular densities. ASSESSMENT: Benign, BI-RAD 2 RECOMMENDATION: Routine screening mammogram of both breasts in 1 year.
== END | disposition home or self-care (01) ==
LOC: RADMAMWWP 10:54
PROVIDERS: ATTEND Internal Medicine
DX: Z12.31 Encounter for screening mammogram for malignant neoplasm of breast (principal); Z80.3 Family history of malignant neoplasm of breast; Z78.0 Asymptomatic menopausal state
CPT/HCPCS: 77067

== ENCOUNTER 2021-12-05 14:38 | Emergency (ER) | payer OTHER ==
[2021-12-05 14:52] VITALS: BP 127/62; PULSE 96; RESP 20; TEMP 98.2
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
--- NOTE | 2021-12-05 17:40 | XR ---
RESULT: HISTORY: injury TECHNIQUE: 3 views of the bilateral shoulders. 2 views of the left humerus. COMPARISON: None. FINDINGS: There is no acute fracture or dislocation of the bilateral shoulders or left humerus. The visualized joint spaces are preserved. IMPRESSION: No acute osseous abnormality of the bilateral shoulders or left humerus.
== END 2021-12-05 18:58 | disposition home or self-care (01) ==
LOC: EC 14:38
DX: M54.2 Cervicalgia (principal); J45.909 Unspecified asthma, uncomplicated; Z86.73 Personal history of transient ischemic attack (TIA), and cerebral infarction without residual deficits; K21.9 Gastro-esophageal reflux disease without esophagitis; Z79.83 Long term (current) use of bisphosphonates; E78.5 Hyperlipidemia, unspecified; I10 Essential (primary) hypertension; Z91.040 Latex allergy status; Z88.0 Allergy status to penicillin

== ENCOUNTER → 2022-05-06 | Outpatient (CLI) | payer OTHER ==
[2022-05-06 19:41] LABS: Chol/HDL Ratio 6.02 Ratio; LDL Cholesterol,Calculated 163.8 mg/dL (0.0-131.0)
[2022-05-06 20:00] LABS: Basophils # (A) 0.05 X 10*3/uL (0.00-0.10); Basophils % (A) 0.9 %; Eosinophils # (A) 0.17 X 10*3/uL (0.04-0.35); HCT 49.4 % (37.2-46.3); HGB 16.2 g/dL (12.0-15.0); Immature Grans, Automated 0.4 %; Immature Platelet Fraction 15.7 % (1.1-6.1); Lymphocytes # (A) 0.94 X 10*3/uL (0.90-5.00); Lymphocytes % (A) 16.7 %; MCH 28.9 pg (27.0-32.0); MCHC 32.8 g/dL (32.0-37.0); MCV 88.2 fL (80.0-97.0); Mean Platelet Volume 11.4 fL (9.5-12.2); Monocytes % (A) 10.7 %; NRBC Per 100 WBC 0 /100 WBCS (0.0-0.0); Neutrophils # (A) 3.85 X 10*3/uL (1.80-7.70); Neutrophils % (A) 68.3 %; RBC Morphology NORMAL; RDW 14.6 % (11.5-14.5); WBC 5.63 X 10*3/uL (4.50-10.00)
[2022-05-06 20:35] LABS: Erythrocyte Sedimentation Rate 33 mm/Hr (0-30)
[2022-05-06 21:11] LABS: ALT 15 U/L (8-44); AST 15 U/L (13-35); African American GFR (CKD) 82.6 (60.0-200.0); Albumin 3.9 g/dL (3.8-4.9); Albumin/Globulin Ratio 1.68 (1.60-3.17); Alkaline Phosphatase 80 U/L (41-126); BUN/Creat Ratio 15.22 Ratio (12.00-20.00); Blood Urea Nitrogen 13.5 mg/dL (9.0-27.0); Calcium 9.4 mg/dL (8.7-10.3); Carbon Dioxide 25.1 mmol/L (20.0-27.5); Chloride 103 mmol/L (96-109); Creatine Kinase 74 U/L (26-186); Globulin 2.3 g/dL (1.6-3.3); Glucose 89 mg/dL (70-110); Magnesium 2.2 mg/dL (1.5-2.4); Non-African American GFR(CKD) 71.2 (60.0-200.0); Phosphorus 4.3 mg/dL (2.4-5.1); Potassium 4.3 mmol/L (3.5-5.5); Sodium 141 mmol/L (135-145); Total Protein 6.2 g/dL (6.2-8.2)
== END | disposition home or self-care (01) ==
LOC: LABWHC1 10:19
PROVIDERS: ATTEND Internal Medicine
DX: J44.9 Chronic obstructive pulmonary disease, unspecified (principal); I10 Essential (primary) hypertension; E87.6 Hypokalemia; E03.9 Hypothyroidism, unspecified; E11.65 Type 2 diabetes mellitus with hyperglycemia; E78.5 Hyperlipidemia, unspecified; E55.9 Vitamin D deficiency, unspecified; D64.9 Anemia, unspecified; E66.9 Obesity, unspecified; M81.0 Age-related osteoporosis without current pathological fracture
CPT/HCPCS: 36415; 80053; 80061; 82306; 82550; 83036; 83735; 84100; 84439; 84443; 84550; 85025; 85652; 86140

== ENCOUNTER 2023-05-14 13:38 | Observation (INO) | payer OTHER ==
[2023-05-14] MEDS ORDERED: ONDANSETRON 4 MG/2 ML VIAL IVP STA ×2 (13:46→16:36)
[2023-05-14] MEDS ORDERED: HYDROmorphone 1 MG/ML 1 ML SYRINGE IVP STA ×3 (13:46→16:45)
--- NOTE | 2023-05-14 13:52 | ED ---
General Adult HPI - General Chief complaint: Fall Stated complaint: Fall Time Seen by Provider: 05/14/23 13:43 Source: patient, EMS Mode of arrival: EMS Limitations: no limitations - History of Present Illness Initial comments: Patient presents to the ED by ambulance for evaluation status post fall. Patient states that she accidentally tripped over uneven floor, causing her to fall onto her left side. Patient states that she hit the left side of her chest on the cement, and she states that she has been having left-sided rib pain since then. Patient states that she was able to get up with assistance from her family, but then her rib pain became unbearable, so they called for an ambulance. Patient is currently complaining of having left-sided rib pain and dyspnea. Patient also admits to having left-sided shoulder, elbow and hand pain. Patient states that her tetanus is up-to-date. Patient denies head injury, headache, LOC/syncope, neck/back/lower extremity pain, cough or cold symptoms, palpitations, dizziness, nausea/vomiting, abdominal pain, or any other symptoms or complaints. Patient denies anticoagulant medication use. - Related Data Home Medications Medication Instructions Recorded Confirmed Albuterol Sulfate [Ventolin HFA] 2 puff INHALATION RT-QID PRN 12/30/13 05/14/23 Omeprazole 20 mg PO BID 12/30/13 05/14/23 Aspirin EC [Ecotrin Low Dose] 81 mg PO DAILY 05/14/23 05/14/23 Atorvastatin Calcium [Lipitor] 40 mg PO HS 05/14/23 05/14/23 Cholecalciferol [Vitamin D3 (25 50 mcg PO DAILY 05/14/23 05/14/23 Mcg = 1000 Iu)] Fluticasone Propionate 110 Mcg 2 puff INHALATION RT-BID 05/14/23 05/14/23 [Flovent 110 Mcg Inhaler] Gabapentin(Unknown Dose) 1 dose PO DIRECTED 05/14/23 05/14/23 Naproxen [Naprosyn] 500 mg PO BID PRN 05/14/23 05/14/23 Unknown Bp Meds 1 dose PO DIRECTED 05/14/23 05/14/23 levETIRAcetam [Keppra] 750 mg PO BID 05/14/23 05/14/23 Allergies Allergy/AdvReac Type Severity Reaction Status Date / Time adhesive Allergy blisters Verified 05/14/23 17:06 and taylor skin Penicillins Allergy Rash/Hives Verified 05/14/23 17:06 morphine AdvReac Nausea & Verified 05/14/23 17:06 Vomiting Review of Systems ROS Statement: Those systems with pertinent positive or pertinent negative responses have been documented in the HPI. ROS Other: All systems not noted in ROS Statement are negative. Past Medical History Past Medical History: Asthma, Cancer, COPD, CVA/TIA, Eye Disorder, Fibromyalgia, GERD/Reflux, GI Bleed, Hyperlipidemia, Hypertension, Memory Impairment, Musculoskeletal Disorder, Osteoarthritis (OA), Rheumatoid Arthritis (RA), Seizure Disorder, Sleep Apnea/CPAP/BIPAP Additional Past Medical History / Comment(s): CVA 2005 with R leg weakness and R hand tremors, UTERINE AND CERVICAL CA 2005 THYROID CA 2003 BEGINNING OF CATARACTS bilaterally, LAST SEIZURE-2005, HAS LARGE LUMP TO RT LEG R/T RECENT FALL. BILAT GLAUCOMA History of Any Multi-Drug Resistant Organisms: None Reported Past Surgical History: Bariatric Surgery, Section, Hernia Repair, Hysterectomy, Joint Replacement, Orthopedic Surgery, Tonsillectomy Additional Past Surgical History / Comment(s): BILAT TKA, RT ROTATOR CUFF REPAIR, CYSTS REMOVED BILAT WRISTS,RT SKNEE SX X 2,THYROID SX,PAIN CLINIC [place] OCEDURES,BILAT EYE SX,GASTRIC BYPASS 1984,Laser surgery BILAT eye FOR GLAUCOMA, COLONOSCOPY AND EGD Past Anesthesia/Blood Transfusion Reactions: Previous Problems w/ Anesthesia, Postoperative Nausea & Vomiting (PONV) Additional Past Anesthesia/Blood Transfusion Reaction / Comment(s): difficulty arousing Past Psychological History: Anxiety, Depression Past Alcohol Use History: None Reported Past Drug Use History: None Reported - Past Family History Mother Family Medical History: Cancer diabetes, CHF, cancer, blood disease Family Medical History: Cancer, Diabetes Mellitus General Exam Limitations: no limitations General appearance: alert Head exam: Present: atraumatic, normocephalic Eye exam: Present: normal appearance, PERRL, EOMI ENT exam: Present: mucous membranes moist Neck exam: Present: normal inspection, full ROM, other (Trachea is in midline). Absent: tenderness Respiratory exam: Present: normal lung sounds bilaterally, other (Reproducible left inferolateral chest wall tenderness; no crepitation or deformity is appreciated). Absent: respiratory distress, wheezes, rales, rhonchi, stridor Cardiovascular Exam: Present: normal rhythm, tachycardia, normal heart sounds, other (Normal radial pulses bilaterally) GI/Abdominal exam: Present: soft. Absent: distended, tenderness, guarding Extremities exam: Present: full ROM, other (Pelvis is stable and nontender; no lower extremity tenderness; full range of motion at bilateral hips and knees; mild left lateral shoulder tenderness; mild left posterior elbow ecchymosis and tenderness; mild tenderness and abrasions are noted over left third and fourth PIP joints ). Absent: pedal edema Back exam: Present: normal inspection. Absent: tenderness Neurological exam: Present: alert, oriented X3, CN II-XII intact. Absent: motor sensory deficit Psychiatric exam: Present: anxious Skin exam: Present: warm, dry Course Vital Signs 05/14/23 05/14/23 05/14/23 13:39 13:49 13:57 Temperature 97.1 F L Pulse Rate 111 H Respiratory 24 26 H Rate Blood Pressure 102/48 O2 Sat by Pulse 87 L 91 L Oximetry 05/14/23 05/14/23 15:07 16:28 Temperature 97.1 F L Pulse Rate 104 H 105 H Respiratory 18 24 Rate Blood Pressure 138/106 135/90 O2 Sat by Pulse 93 L 90 L Oximetry - Reevaluation(s) Reevaluation #1: 05/14/23 15:32 Case, H&P, imaging reports and ED management thus far were discussed with Dr. Weinberg (trauma surgery). He recommends/accepts hospital floor admission. He recommends medical service consultation, pulmonology consultation (Dr. Petersen) and anesthesia consultation for rib block (Dr. Hankins was contacted and agrees to perform rib block for patient). He also asks to order a chest x-ray for tomorrow morning. He has no further recommendations at this time. 05/14/23 15:50 Patient is aware her imaging findings and my discussion with Dr. Weinberg as above. She reports improvement in her pain with IV Dilaudid that she has been given in the ED. She denies development of any new pain or symptoms while in the ED. She continues to be alert and breathing comfortably. She agrees with the plan for hospital admission at this time. EKG Findings - EKG Comments: EKG Findings:: ED physician interpretation (interpreted by me): Sinus tach ycardia, ventricular rate of 106 bpm, no ectopy, normal TX and QRS intervals, normal QT interval, normal axis, no ST or T-wave abnormality Medical Decision Making - Medical Decision Making Was pt. sent in by a medical professional or institution (ANGI Cortez, MORTUARY OPERATIONS MANAGER, urgent care, hospital, or intermediate...) When possible be specific @ -No Did you speak to anyone other than the patient for history (EMS, parent, family, police, friend...)? What history was obtained from this source @ -History was also obtained from EMS. Did you review nursing and triage notes (agree or disagree)? Why? @ -I reviewed and agree with nursing and triage notes Were old charts reviewed (outside hosp., previous admission, EMS record, old EKG, old radiological studies, urgent care reports/EKG's, intermediate records)? Report findings @ -No old charts were reviewed Differential Diagnosis (chest pain, altered mental status, abdominal pain women, abdominal pain men, vaginal bleeding, weakness, fever, dyspnea, syncope, headache, dizziness, GI bleed, back pain, seizure, CVA, palpatations, mental health, musculoskeletal)? @ -Fall, contusion, fracture, sprain, strain, dislocation, abrasion, rib fracture, pulmonary contusion, pneumothorax EKG interpreted by me (3pts min.). @ -As above X-rays interpreted by me (1pt min.). @ -Chest, left shoulder, left elbow and left hand x-rays were all reviewed myself and show no acute abnormalities. I agree with the radiologist's interpretations as above. CT interpreted by me (1pt min.). @ -Noncontrast CT chest was reviewed myself and shows a nondisplaced left seventh rib fracture and small left-sided pneumothorax. I agree with the radiologist's interpretation as above. U/S interpreted by me (1pt. min.). @ -None done What testing was considered but not performed or refused? (CT, X-rays, U/S, labs)? Why? @ -None What meds were considered but not given or refused? Why? @ -None Did you discuss the management of the patient with other professionals (professionals i.e. ANGI Cortez, MORTUARY OPERATIONS MANAGER, lab, RT, psych nurse, social sciences research scientist, funding coordinator, teacher, information technology officer, case management assistant)? Give summary @ -As above. Was smoking cessation discussed for >3mins.? @ -No Was critical care preformed (if so, how long)? @ -No Were there social determinants of health that impacted care today? How? (Homelessness, low income, unemployed, alcoholism, drug addiction, transportation, low edu. Level, literacy, decrease access to med. care, alf, rehab)? @ -No Was there de-escalation of care discussed even if they declined (Discuss DNR or withdrawal of care, Hospice)? DNR status @ -No What co-morbidities impacted this encounter? (DM, HTN, Smoking, COPD, CAD, Cancer, CVA, ARF, Chemo, Hep., AIDS, mental health diagnosis, sleep apnea, morbid obesity)? @ -None Was patient admitted / discharged? Hospital course, mention meds given and route, prescriptions, significant lab abnormalities, going to OR and other pertinent info. @ -Patient's pain was managed with IV Dilaudid in the ED. Patient's noncontrast chest CT reveals a nondisplaced left seventh rib fracture, as well as a small left-sided pneumothorax. Dr. Weinberg (trauma surgery) was contacted by telephone from the ED, and he recommends/accepts hospital admission. Dr. Hankins (anesthesiologist) was also contacted by phone from the ED, and he agrees to perform a rib block on the patient. Will admit the patient to the hospital at this time for further pain management and pneumothorax evaluation/ monitoring. Patient agrees with this plan. Undiagnosed new problem with uncertain prognosis? @ -No Drug Therapy requiring intensive monitoring for toxicity (Heparin, Nitro, Insulin, Cardizem)? @ -No Were any procedures done? @ -No Diagnosis/symptom? @ -Mechanical fall with a nondisplaced left seventh rib fracture and small left pneumothorax Acute, or Chronic, or Acute on Chronic? @ -acute Uncomplicated (without systemic symptoms) or Complicated (systemic symptoms)? @ -default Side effects of treatment? @ -No Exacerbation, Progression, or Severe Exacerbation? @ -No Poses a threat to life or bodily function? How? (Chest pain, [place], [place], pneumonia, PE, COPD, DKA, ARF, appy, cholecystitis, CVA, Diverticulitis, Homicidal, Suicidal, threat to staff... and all critical care pts) @ -No - Lab Data Result diagrams: 05/14/23 15:51 Lab Results 05/14/23 Range/Units 15:51 Sodium 136 L (137-145) mmol/L Potassium 5.9 H (3.5-5.1) mmol/L Chloride 102 (98-107) mmol/L Carbon Dioxide 20 L (22-30) mmol/L Anion Gap 14 mmol/L BUN 17 (7-17) mg/dL Creatinine 1.13 H (0.52-1.04) mg/dL Est GFR (CKD-EPI)AfAm 61 (>60 ml/min/1.73 sqM) Est GFR (CKD-EPI)NonAf 53 (>60 ml/min/1.73 sqM) Glucose 145 H (74-99) mg/dL Calcium 9.8 (8.4-10.2) mg/dL Total Bilirubin 1.0 (0.2-1.3) mg/dL AST 30 (14-36) U/L ALT 17 (4-34) U/L Alkaline Phosphatase 81 (38-126) U/L Total Protein 8.2 (6.3-8.2) g/dL Albumin 4.6 (3.5-5.0) g/dL - Radiology Data Chest x-ray: Chronic changes without evidence for acute pulmonary disease. Left shoulder x-rays: There is no acute fracture or dislocation. Left elbow x-rays: There is no acute fracture or dislocation of the elbow. Left hand x-rays: There is no acute fracture or dislocation. Noncontrast CT chest: 1. Left sided pneumothorax estimated at 10-15%. Small amount of subcutaneous air at the seventh rib interspace. 2. Nondisplaced fracture left rib #7. Disposition Clinical Impression: Fall, Contusion of left upper extremity, Abrasion of left hand, Left rib fracture, Pneumothorax, left Disposition: ADMITTED IP TO THIS HOSP Condition: Stable Is patient prescribed a controlled substance at d/c from ED?: No Time of Disposition: 15:56
--- NOTE | 2023-05-14 14:00 | XR ---
EXAMINATION TYPE: XR chest 1V portable DATE OF EXAM: 05/14/2023 HISTORY: Shortness of breath. COMPARISON: 07/25/19 TECHNIQUE: Single view of the chest is submitted. FINDINGS: Demonstrated are scattered senescent parenchymal change. There is no evidence for focal infiltrate. The heart is stable. Hilar and mediastinal structures are within normal limits. Degenerative changes are seen of the dorsal spine. IMPRESSION: 1. Chronic changes without evidence for acute pulmonary disease.
--- NOTE | 2023-05-14 14:32 | XR ---
EXAMINATION TYPE: XR hand complete LT DATE OF EXAM: 05/14/2023 CLINICAL HISTORY: pain TECHNIQUE: Frontal, lateral and oblique images of the left hand are obtained. COMPARISON: None. FINDINGS: There is no acute fracture/dislocation evident. The joint spaces appear within normal limi ts. The overlying soft tissue appears unremarkable. IMPRESSION: There is no acute fracture or dislocation. ICD 10 NO FRACTURE, INITIAL EVALUATION
--- NOTE | 2023-05-14 14:33 | XR ---
EXAMINATION TYPE: XR elbow complete LT DATE OF EXAM: 05/14/2023 CLINICAL HISTORY: pain TECHNIQUE: Frontal, lateral and oblique images of the left elbow are obtained. COMPARISON: None. FINDINGS: There is no acute fracture/dislocation evident of the elbow. No abnormal fat pad signs ar e seen. The overlying soft tissue appears unremarkable. IMPRESSION: There is no acute fracture or dislocation of the elbow. ICD 10 NO FRACTURE, INITIAL EVALUATION
--- NOTE | 2023-05-14 14:33 | XR ---
There is EXAMINATION TYPE: XR shoulder complete LT DATE OF EXAM: 05/14/2023 CLINICAL HISTORY: pain COMPARISON: NONE TECHNIQUE: Three views of the left shoulder are obtained. FINDINGS: There is no acute fracture/dislocation evident. The acromioclavicular and glenohumeral letitia int spaces appear within normal limits. The visualized ribs are intact and unremarkable. IMPRESSION: 1. There is no acute fracture or dislocation. ICD 10 NO FRACTURE, INITIAL EVALUATION
--- NOTE | 2023-05-14 15:06 | CT ---
EXAMINATION TYPE: CT chest wo con DATE OF EXAM: 05/14/2023 COMPARISON: None HISTORY: Fall, left-sided rib pain, dyspnea CT DLP: 481.[address] of the chest was performed with lung and mediastinal window settings submitted. The la ck of contrast limits evaluation of the vascular, mediastinal and parenchymal structures including th e upper abdomen. LUNGS: Left-sided pneumothorax estimated at 10-15%. Small amount of subcutaneous air at the seventh r ib interspace. The lungs are clear and free of infiltrate. No atelectasis. No pulmonary nodule or ma ss is detected. No pleural effusion. No CT evidence of interstitial lung disease. MEDIASTINUM/RAYSHAWN: Thoracic aorta is of normal caliber with limited evaluation given lack of contrast . The heart is not enlarged. No evidence for mediastinal mass. No lymph nodes greater than 1cm. UPPER ABDOMEN: No significant abnormality is seen. OTHER: NONDISPLACED FRACTURE OF LEFT RIB #7 IMPRESSION: 1. Left-sided pneumothorax estimated at 10-15%. Small amount of subcutaneous air at the seventh rib interspace. 2. Nondisplaced fracture left rib #7.
[2023-05-14] MEDS ORDERED: NALOXONE 0.4 MG/ML 1 ML VIAL IV PRN (15:56)
[2023-05-14 17:08] LABS: ALT 17 U/L (4-34); African American GFR (CKD) 61 (>60 ml/min/1.73 sqM); Anion Gap 14 mmol/L; Blood Urea Nitrogen 17 mg/dL (7-17); Calcium 9.8 mg/dL (8.4-10.2); Carbon Dioxide 20 mmol/L (22-30); Chloride 102 mmol/L (98-107); Glucose 145 mg/dL (74-99); Non-African American GFR(CKD) 53 (>60 ml/min/1.73 sqM); Sodium 136 mmol/L (137-145)
[2023-05-14 17:19] LABS: AST 30 U/L (14-36); Albumin 4.6 g/dL (3.5-5.0); Alkaline Phosphatase 81 U/L (38-126); Potassium 5.9 mmol/L (3.5-5.1); Total Protein 8.2 g/dL (6.3-8.2)
[2023-05-14] MEDS ORDERED: ROPIVACAINE 5 MG/ML 30 ML VIAL MISCELLANE STA (17:26)
[2023-05-14 18:03] LABS: Glucose,Whole Blood 136 mg/dL (70-110)
--- NOTE | 2023-05-14 18:29 | P.ANPRN ---
Procedure Note - Anesthesia - Nerve Block Performed Left Other (see comment) Single Time Out Performed: Yes Date of Procedure: 05/14/23 Procedure Start Time: 18:00 Procedure Stop Time: 18:10 Indication: Analgesia, Dx/Pain Location (Left Rib Pain - rib fracture T6,T7,T8 Intercostal Nerve Block) Sedation Type: Awake Preparation: Sterile Prep Position: Sitting Catheter: None Needle Types: Pajunk Needle Gauge: 21 Ultrasound used to visualize needle placement: Yes Ultrasound used to observe medication spread: Yes Injectate: 0.5% Ropivacaine (see comment for volume) Blood Aspirated: No Pain Paresthesia on Injection Noted: No Resistance on Injection: Normal Image Stored and Saved: Yes Events: Uneventful and Well Tolerated
[2023-05-14 19:16] LABS: Prothrombin Time 10.7 sec (10.0-12.5)
[2023-05-14 19:18] LABS: Basophils % (A) 0 %; Eosinophils % (A) 0 %; HCT 50.9 % (34.0-46.0); HGB 17.6 gm/dL (11.4-16.0); Lymphocytes # (A) 0.5 k/uL (1.0-4.8); Lymphocytes % (A) 4 %; MCH 30.9 pg (25.0-35.0); MCHC 34.7 g/dL (31.0-37.0); MCV 89.2 fL (80.0-100.0); Mean Platelet Volume 9.7; Monocytes # (A) 0.6 k/uL (0-1.0); Monocytes % (A) 6 %; Neutrophils # (A) 9.8 k/uL (1.3-7.7); Neutrophils % (A) 88 %; Platelet Count 190 k/uL (150-450); RDW 13.8 % (11.5-15.5); WBC 11.1 k/uL (3.8-10.6)
[2023-05-14 19:30] LABS: African American GFR (CKD) 51 (>60 ml/min/1.73 sqM); Anion Gap 13 mmol/L; Blood Urea Nitrogen 18 mg/dL (7-17); Calcium 9.6 mg/dL (8.4-10.2); Carbon Dioxide 23 mmol/L (22-30); Chloride 100 mmol/L (98-107); Glucose 140 mg/dL (74-99); Non-African American GFR(CKD) 44 (>60 ml/min/1.73 sqM); Potassium 5.2 mmol/L (3.5-5.1); Sodium 136 mmol/L (137-145)
[2023-05-14 19:53] LABS: Glucose,Whole Blood 144 mg/dL (70-110)
[2023-05-15 07:32] LABS: Glucose,Whole Blood 118 mg/dL (70-110)
--- NOTE | 2023-05-15 07:56 | XR ---
EXAMINATION TYPE: XR chest 1V portable DATE OF EXAM: 05/15/2023 HISTORY: Pneumothorax follow-up. COMPARISON: 05/14/2023 TECHNIQUE: Single view of the chest is submitted. FINDINGS: Demonstrated are scattered senescent parenchymal change. There is no evidence for focal infiltrate. Small left-sided pneumothorax difficult to exclude. The heart is stable. Hilar and mediastinal structures are within normal limits. Degenerative changes are seen of the dorsal spine. IMPRESSION: 1. Small left-sided pneumothorax difficult to exclude.
[2023-05-15] MEDS ORDERED: IPRATROPIUM-ALBUTEROL 3 ML NEB INHALATION PRN (08:04)
[2023-05-15] MEDS: SYMBICORT 160-4.5 MCG INHALER INHALATION SCH ×2 (08:46→21:21)
[2023-05-15] MEDS: predniSONE 20 MG TAB PO SCH (09:36)
--- NOTE | 2023-05-15 10:01 | P.GSHP ---
History of Present Illness H&P Date: 05/15/23 Chief Complaint: Left seventh rib fracture, pneumothorax This is a 8-year-old female had a ground-level fall. Patient states she struck her left shoulder and had chest pain after her fall. She was worked up emergency room found have evidence of a left-sided 10% pneumothorax with a left seventh rib fracture. Patient was admitted to hospital for pain control. She states she feels better this morning. She still has significant pain. Past Medical History Past Medical History: Asthma, Cancer, COPD, CVA/TIA, Eye Disorder, Fibromyalgia, GERD/Reflux, GI Bleed, Hyperlipidemia, Hypertension, Memory Impairment, Musculoskeletal Disorder, Osteoarthritis (OA), Rheumatoid Arthritis (RA), Seizure Disorder, Sleep Apnea/CPAP/BIPAP Additional Past Medical History / Comment(s): CVA 2005 with R leg weakness and R hand tremors, UTERINE AND CERVICAL CA 2005 THYROID CA 2003 BEGINNING OF CATARACTS bilaterally, LAST SEIZURE-2005, HAS LARGE LUMP TO RT LEG R/T RECENT FALL. BILAT GLAUCOMA History of Any Multi-Drug Resistant Organisms: None Reported Past Surgical History: Bariatric Surgery, Section, Hernia Repair, Hysterectomy, Joint Replacement, Orthopedic Surgery, Tonsillectomy Additional Past Surgical History / Comment(s): BILAT TKA, RT ROTATOR CUFF REPAIR, CYSTS REMOVED BILAT WRISTS,RT SKNEE SX X 2,THYROID SX,PAIN CLINIC PRO CEDURES,BILAT EYE SX,GASTRIC BYPASS 1984,Laser surgery BILAT eye FOR GLAUCOMA, COLONOSCOPY AND EGD Past Anesthesia/Blood Transfusion Reactions: Previous Problems w/ Anesthesia, Postoperative Nausea & Vomiting (PONV) Additional Past Anesthesia/Blood Transfusion Reaction / Comment(s): difficulty arousing Past Psychological History: Anxiety, Depression Past Alcohol Use History: None Reported Past Drug Use History: None Reported - Past Family History Mother Family Medical History: Cancer diabetes, CHF, cancer, blood disease Family Medical History: Cancer, Diabetes Mellitus Medications and Allergies Home Medications Medication Instructions Recorded Confirmed Type Albuterol Sulfate [Ventolin HFA] 2 puff INHALATION RT-QID PRN 12/30/13 05/14/23 History Omeprazole 20 mg PO BID 12/30/13 05/14/23 History Aspirin EC [Ecotrin Low Dose] 81 mg PO DAILY 05/14/23 05/14/23 History Atorvastatin Calcium [Lipitor] 40 mg PO HS 05/14/23 05/14/23 History Cholecalciferol [Vitamin D3 (25 50 mcg PO DAILY 05/14/23 05/14/23 History Mcg = 1000 Iu)] Fluticasone Propionate 110 Mcg 2 puff INHALATION RT-BID 05/14/23 05/14/23 History [Flovent 110 Mcg Inhaler] Gabapentin(Unknown Dose) 1 dose PO DIRECTED 05/14/23 05/14/23 History Naproxen [Naprosyn] 500 mg PO BID PRN 05/14/23 05/14/23 History Unknown Bp Meds 1 dose PO DIRECTED 05/14/23 05/14/23 History levETIRAcetam [Keppra] 750 mg PO BID 05/14/23 05/14/23 History Allergies Allergy/AdvReac Type Severity Reaction Status Date / Time adhesive Allergy blisters Verified 05/14/23 17:06 and taylor skin Penicillins Allergy Rash/Hives Verified 05/14/23 17:06 morphine AdvReac Nausea & Verified 05/14/23 17:06 Vomiting Surgical - Exam Vital Signs Temp Pulse Resp BP Pulse Ox 97.1 F L 111 H 24 102/48 87 L 05/14/23 13:39 05/14/23 13:39 05/14/23 13:39 05/14/23 13:39 05/14/23 13:39 - General well developed, no distress - Eyes PERRL - ENT normal pinna - Neck no masses - Respiratory normal expansion - Cardiovascular Rhythm: regular - Abdomen Abdomen: soft, non tender Results - Labs 05/14/23 18:18 05/14/23 18:18 Abnormal Lab Results - Last 24 Hours (Table) 05/14/23 05/14/23 05/14/23 Range/Units 15:51 18:00 18:18 WBC 11.1 H (3.8-10.6) k/uL RBC 5.70 H (3.80-5.40) m/uL Hgb 17.6 H (11.4-16.0) gm/dL Hct 50.9 H (34.0-46.0) % Neutrophils # 9.8 H (1.3-7.7) k/uL Lymphocytes # 0.5 L (1.0-4.8) k/uL Sodium 136 L (137-145) mmol/L Potassium 5.9 H (3.5-5.1) mmol/L Carbon Dioxide 20 L (22-30) mmol/L BUN (7-17) mg/dL Creatinine 1.13 H (0.52-1.04) mg/dL Glucose 145 H (74-99) mg/dL POC Glucose (mg/dL) 136 H (70-110) mg/dL 05/14/23 05/14/23 05/15/23 Range/Units 18:18 19:47 07:30 WBC (3.8-10.6) k/uL RBC (3.80-5.40) m/uL Hgb (11.4-16.0) gm/dL Hct (34.0-46.0) % Neutrophils # (1.3-7.7) k/uL Lymphocytes # (1.0-4.8) k/uL Sodium 136 L (137-145) mmol/L Potassium 5.2 H (3.5-5.1) mmol/L Carbon Dioxide (22-30) mmol/L BUN 18 H (7-17) mg/dL Creatinine 1.32 H (0.52-1.04) mg/dL Glucose 140 H (74-99) mg/dL POC Glucose (mg/dL) 144 H 118 H (70-110) mg/dL Diabetes panel 05/14/23 05/14/23 Range/Units 15:51 18:18 Sodium 136 L 136 L (137-145) mmol/L Potassium 5.9 H 5.2 H (3.5-5.1) mmol/L Chloride 102 100 (98-107) mmol/L Carbon Dioxide 20 L 23 (22-30) mmol/L BUN 17 18 H (7-17) mg/dL Creatinine 1.13 H 1.32 H (0.52-1.04) mg/dL Glucose 145 H 140 H (74-99) mg/dL Calcium 9.8 9.6 (8.4-10.2) mg/dL AST 30 (14-36) U/L ALT 17 (4-34) U/L Alkaline Phosphatase 81 (38-126) U/L Total Protein 8.2 (6.3-8.2) g/dL Albumin 4.6 (3.5-5.0) g/dL Calcium panel 05/14/23 05/14/23 Range/Units 15:51 18:18 Calcium 9.8 9.6 (8.4-10.2) mg/dL Albumin 4.6 (3.5-5.0) g/dL Pituitary panel 05/14/23 05/14/23 Range/Units 15:51 18:18 Sodium 136 L 136 L (137-145) mmol/L Potassium 5.9 H 5.2 H (3.5-5.1) mmol/L Chloride 102 100 (98-107) mmol/L Carbon Dioxide 20 L 23 (22-30) mmol/L BUN 17 18 H (7-17) mg/dL Creatinine 1.13 H 1.32 H (0.52-1.04) mg/dL Glucose 145 H 140 H (74-99) mg/dL Calcium 9.8 9.6 (8.4-10.2) mg/dL Adrenal panel 05/14/23 05/14/23 Range/Units 15:51 18:18 Sodium 136 L 136 L (137-145) mmol/L Potassium 5.9 H 5.2 H (3.5-5.1) mmol/L Chloride 102 100 (98-107) mmol/L Carbon Dioxide 20 L 23 (22-30) mmol/L BUN 17 18 H (7-17) mg/dL Creatinine 1.13 H 1.32 H (0.52-1.04) mg/dL Glucose 145 H 140 H (74-99) mg/dL Calcium 9.8 9.6 (8.4-10.2) mg/dL Total Bilirubin 1.0 (0.2-1.3) mg/dL AST 30 (14-36) U/L ALT 17 (4-34) U/L Alkaline Phosphatase 81 (38-126) U/L Total Protein 8.2 (6.3-8.2) g/dL Albumin 4.6 (3.5-5.0) g/dL Assessment and Plan Assessment: Left sided chest pain related to seventh rib fracture. The patient's pneumothorax appears to be minimal and today's x-ray. Patient will receive supportive care. Alessiaus be discharged home tomorrow.
[2023-05-15] MEDS: ASPIRIN 81 MG PO SCH (11:25)
[2023-05-15] MEDS: GABAPENTIN 300 MG CAP PO SCH ×3 (11:25→21:49)
[2023-05-15] MEDS: METOPROLOL SUCCINATE (ER) 50 MG TAB.ER.24H PO SCH (11:26)
[2023-05-15] MEDS: CHOLECALCIFEROL 25 MCG (1000 IU) TABLET PO SCH (11:26)
--- NOTE | 2023-05-15 11:34 | P.CONS ---
History of Present Illness - Reason for Consult Consult date: 05/15/23 (Left pneumothorax, rib fracture on the left side) Medical management Requesting physician: Sumit Weinberg - Chief Complaint Fall off the stairs landed on her left side with severe pain, rib fracture - History of Present Illness Consult for medical management and resume her medication Date of service 05/15/[address] no Chief complaint: Patient brought by EMS to the ER with the trauma to her left side of the chest after she fall down and missing 2 steps of the cement landing resulted in severe pain and shortness of breath found to be in the ER no pn eumothorax and rib fracture on the left side #7. History of present illness: 62 years old white female was getting out of the home in accompanying of her daughter for Thanksgiving dinner she, She missed 2 steps of the cement and landed on the cement on her left side she puts her left hand on her head to protect her for head and landed on her left side of the ribs with the severe pain and shortness of breath her daughter called EMS brought by ambulance to the ER. In the ER patient evaluated with a chest x-ray and computed tomography scan and laboratories and found that she had left 7 lipid fracture with a pneumothorax and severe excruciating pain. Patient admitted under , general surgery and trauma surgeon and they consulted the anesthesia for the block who did block T6 T7 T8 for severe pain not controlled by medication, Pulmonary was consulted As well also x-ray was done x-ray, shoulder x-ray, and an x-ray on the left side only presence of a pulse of her left hand was increased and confused. Past medical history: Patient had severe COPD and has been treated with inhalers as well she had history of depression and hypertension and diabetes mellitus Seizure disorder and pain management was treated by Dr. Case neurologist. As well as a history of tachycardia and GERD disease, history of fatty infiltration of the liver, nicotine dependence with the chronic smoker. Osteoarthritis of the joint. Varicose veins of the lower extremities and an anxiety disorder and COPD. Diabetes mellitus type 2 List of medication #1 then to lean HFA 90 g inhaler 2 puffs 4 times a day #2 Flovent HFA 2 puffs twice a day 110 g per inhaler aerosol #3 omeprazole 40 mg capsule before meals breakfast #4 nebulizers albuterol/ipratropium 2.5 mg/0.5 mg 3 imbalance effusion 3 times a day. #5 metoprolol succinate ER 50 mg extended release before meals breakfast #6 sertraline 50 mg every morning #7 hydralazine 50 mg twice a day for hypertension #8 amlodipine 10 mg daily at bedtime #9 Amaryl 2 mg with breakfast daily for diabetes mellitus #10 aspirin 81 mg daily #11 Keppra 75 mg twice a day for seizure disorder #12 gabapentin 600 mg 4 times a day. seizure disorder. ALLERGY ALLERGIC to adhesive, penicillin, morphine. Family history 5 para 4 One daughter killed in [place] [facility] 2 daughter and 1 son. Added past history cholelithiasis, peptic ulcer disease, hayfever, back pain, seizure disorder started on 2004, history of cardiac arrhythmias with his irregular heartbeat during sleeping Migraine headaches, arthritis history of thyroid disease, high cholesterol heart disease, glaucoma, depression, irritable bowel syndrome., Asthma. 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 And review of system Neuropsychiatry only depression and the pain in the left side of the chest with the presence of rib fracture and pneumothorax Pulmonary shortness of breath Cardiovascular no complaint no palpitation GI no complaint no complaint Other than reviewed no other symptoms with the especially the trauma Physical exam: Temperature 97.1, heart rate 111-105 without medication beta blo ckers Respiratory rate 18-24 with the underlying pneumothorax and shortness of breath and COPD and smoker Her oxygen saturation on 4 L 90 was 87 on admission. With the hypoxemia. Head was normocephalic and atraumatic. Pupil is equal reactive. Oropharynx dentures. Neck was supple she had multiple tattoos 3 Chest increased anteroposterior diameter with the severe pain and tenderness on the left side of the ribs with inability to take a full breasts with the slanting knife on the left side Heart regular sinus with tachycardia and on admission EKG is sinus tachycardia. Abdomen was soft positive bowel sounds Extremities no apparent fracture of the arms shoulder legs, she had left hand knuckle confused She had the rib fracture on the seventh with the underlying severe pain and the block was done. Neurologically stable and no current seizure with continue seizure medication and antidepression medication and home medication. Assessment: Accidental falling attacks on her left side and the resulted in left seventh rib fracture and pneumothorax. With the shortness of breath since severe pain and hypoxemia. #2 underlying multiple medical problem including hypertension, advanced COPD, t achycardia, depression, and anxiety, diabetes mellitus. Blood pressure at the time of the exam 135/90 and pulse ox 90 on4 4 L later, Plan we will resume her medication and is monitor blood pressure obtain hemoglobin A1c. And will follow with you Past Medical History Past Medical History: Asthma, Cancer, COPD, CVA/TIA, Eye Disorder, Fibromyalgia, GERD/Reflux, GI Bleed, Hyperlipidemia, Hypertension, Memory Impairment, Musculoskeletal Disorder, Osteoarthritis (OA), Rheumatoid Arthritis (RA), Seizure Disorder, Sleep Apnea/CPAP/BIPAP Additional Past Medical History / Comment(s): CVA 2005 with R leg weakness and R hand tremors, UTERINE AND CERVICAL CA 2005 THYROID CA 2003 BEGINNING OF CATARACTS bilaterally, LAST SEIZURE-2005, HAS LARGE LUMP TO RT LEG R/T RECENT FALL. BILAT GLAUCOMA History of Any Multi-Drug Resistant Organisms: None Reported Past Surgical History: Bariatric Surgery, Section, Hernia Repair, Hysterectomy, Joint Replacement, Orthopedic Surgery, Tonsillectomy Additional Past Surgical History / Comment(s): BILAT TKA, RT ROTATOR CUFF REPAIR, CYSTS REMOVED BILAT WRISTS,RT SKNEE SX X 2,THYROID SX,PAIN CLINIC PROCEDURES,BILAT EYE SX,GASTRIC BYPASS 1984,Laser surgery BILAT eye FOR GLAUCOMA, COLONOSCOPY AND EGD Past Anesthesia/Blood Transfusion Reactions: Previous Problems w/ Anesthesia, Postoperative Nausea & Vomiting (PONV) Additional Past Anesthesia/Blood Transfusion Reaction / Comm: difficulty arousing Past Psychological History: Anxiety, Depression Past Alcohol Use History: None Reported Past Drug Use History: None Reported - Past Family History Mother Family Medical History: Cancer diabetes, CHF, cancer, blood disease Family Medical History: Cancer, Diabetes Mellitus Medications and Allergies Home Medications Medication Instructions Recorded Confirmed Type Albuterol Sulfate [Ventolin HFA] 2 puff INHALATION RT-QID PRN 12/30/13 05/14/23 History Omeprazole 20 mg PO BID 12/30/13 05/14/23 History Aspirin EC [Ecotrin Low Dose] 81 mg PO DAILY 05/14/23 05/14/23 History Atorvastatin Calcium [Lipitor] 40 mg PO HS 05/14/23 05/14/23 History Cholecalciferol [Vitamin D3 (25 50 mcg PO DAILY 05/14/23 05/14/23 History Mcg = 1000 Iu)] Fluticasone Propionate 110 Mcg 2 puff INHALATION RT-BID 05/14/23 05/14/23 History [Flovent 110 Mcg Inhaler] Gabapentin(Unknown Dose) 1 dose PO DIRECTED 05/14/23 05/14/23 History Naproxen [Naprosyn] 500 mg PO BID PRN 05/14/23 05/14/23 History Unknown Bp Meds 1 dose PO DIRECTED 05/14/23 05/14/23 History levETIRAcetam [Keppra] 750 mg PO BID 05/14/23 05/14/23 History Allergies Allergy/AdvReac Type Severity Reaction Status Date / Time adhesive Allergy blisters Verified 05/14/23 17:06 and taylor skin Penicillins Allergy Rash/Hives Verified 05/14/23 17:06 morphine AdvReac Nausea & Verified 05/14/23 17:06 Vomiting Physical Exam Vitals: Vital Signs Temp Pulse Pulse Resp BP BP Pulse Ox 05/15/23 08:49 91 L 05/15/23 07:26 98.4 F 84 16 126/66 94 L 05/15/23 02:00 98.5 F 64 16 148/64 91 L 05/14/23 20:30 90 16 05/14/23 20:00 97.7 F 90 16 115/75 92 L 05/14/23 16:28 97.1 F L 105 H 24 135/90 90 L 05/14/23 15:07 104 H 18 138/106 93 L 05/14/23 13:57 26 H 05/14/23 13:49 91 L 05/14/23 13:39 97.1 F L 111 H 24 102/48 87 L Intake and Output 05/14/23 05/15/23 05/15/23 22:59 06:59 14:59 Intake Total 240 Output Total 100 13 Balance 140 -13 Intake: Oral 240 Output: Post Void Residual 13 Emesis 100 Other: # Voids 1 1 Weight 90.718 kg Results CBC & Chem 7: 05/14/23 18:18 11/23/23 18:18 Labs: Abnormal Lab Results - Last 24 Hours (Table) 05/14/23 05/14/23 05/14/23 Range/Units 15:51 18:00 18:18 WBC 11.1 H (3.8-10.6) k/uL RBC 5.70 H (3.80-5.40) m/uL Hgb 17.6 H (11.4-16.0) gm/dL Hct 50.9 H (34.0-46.0) % Neutrophils # 9.8 H (1.3-7.7) k/uL Lymphocytes # 0.5 L (1.0-4.8) k/uL Sodium 136 L (137-145) mmol/L Potassium 5.9 H (3.5-5.1) mmol/L Carbon Dioxide 20 L (22-30) mmol/L BUN (7-17) mg/dL Creatinine 1.13 H (0.52-1.04) mg/dL Glucose 145 H (74-99) mg/dL POC Glucose (mg/dL) 136 H (70-110) mg/dL 05/14/23 05/14/23 05/15/23 Range/Units 18:18 19:47 07:30 WBC (3.8-10.6) k/uL RBC (3.80-5.40) m/uL Hgb (11.4-16.0) gm/dL Hct (34.0-46.0) % Neutrophils # (1.3-7.7) k/uL Lymphocytes # (1.0-4.8) k/uL Sodium 136 L (137-145) mmol/L Potassium 5.2 H (3.5-5.1) mmol/L Carbon Dioxide (22-30) mmol/L BUN 18 H (7-17) mg/dL Creatinine 1.32 H (0.52-1.04) mg/dL Glucose 140 H (74-99) mg/dL POC Glucose (mg/dL) 144 H 118 H (70-110) mg/dL
[2023-05-15 12:02] LABS: Glucose,Whole Blood 119 mg/dL (70-110)
[2023-05-15] MEDS: IPRATROPIUM-ALBUTEROL 3 ML NEB INHALATION SCH ×3 (12:21→21:22)
[2023-05-15] MEDS: SERTRALINE 50 MG TAB PO SCH (13:16)
[2023-05-15] MEDS: PANTOPRAZOLE 40 MG TABLET PO SCH ×2 (13:16→20:28)
--- NOTE | 2023-05-15 13:17 | P.CNPUL ---
History of Present Illness Consult date: 05/15/23 Requesting physician: Harshal Mcadams Reason for consult: pneumothorax, abnormal CXR/CT Chief complaint: Left-sided chest wall pain History of present illness: This is a pleasant 62-year-old female patient with a known history of chronic and ongoing tobacco dependence, chronic obstructive pulmonary disease, seizure disorder, hypertension, hyperlipidemia, fibromyalgia, CVA/TIA with residual right-sided weakness anxiety/depression. Yesterday she tripped while walking to the garage and fell onto her left side onto a cement step. She was assisted up by family however the pain became unbearable and she presented here to the emergency room for the same. X-rays of the left shoulder although and hand were negative for fracture. Chest x-ray revealed chronic changes but no acute pulmonary process. Computed tomography scan of the chest did reveal a left- sided pneumothorax estimated at 10-15%. Small amount of subcutaneous air at the seventh rib interspace. Nondisplaced fracture of left rib #7. We're consulted for the same. She is seen today on the regular medical floor. Sitting up in bed. Awake and alert in no acute distress. She is maintaining O2 saturations in the 90s on 2 L/m per nasal cannula. She's afebrile. Hemodynamically stable. She is somewhat bronchospastic and wheezing. Pain is better controlled. She did receive a intercostal nerve block per anesthesia last night. White count 11.1. Hemoglobin 17.6. Platelets 190. Sodium 136. Potassium 5.2. Bicarb 23. BUN 18. Creatinine 1.32. Glucose 140. Review of Systems REVIEW OF SYSTEMS: CONSTITUTIONAL: Denies any recent significant weight loss or weight gain. EYES: Denies change in vision. EARS, NOSE, MOUTH, THROAT: Denies headaches, denies sore throat. CARDIOVASCULAR: Positive for left-sided chest wall pain, no palpitations or syncopal episodes. RESPIRATORY: Positive for shortness of breath, cough, congestion no hemoptysis. GASTROINTESTINAL: Denies change in appetite, denies abdominal pain GENITOURINARY: Denies hematuria, denies infections. MUSKULOSKELETAL: Positive for left arm pain, denies swelling. INTEGUMENTARY: Denies rash, denies eczema. NEUROLOGICAL: Denies recent memory loss, no recent seizure activity. PSYCHIATRIC: Denies anxiety, denies depression. HEMATOLOGIC/LYMPHATIC: Denies anemia, denies enlarged lymph nodes. Past Medical History Past Medical History: Asthma, Cancer, COPD, CVA/TIA, Eye Disorder, Fibromyalgia, GERD/Reflux, GI Bleed, Hyperlipidemia, Hypertension, Memory Impairment, Musculoskeletal Disorder, Osteoarthritis (OA), Rheumatoid Arthritis (RA), Seizure Disorder, Sleep Apnea/CPAP/BIPAP Additional Past Medical History / Comment(s): CVA 2005 with R leg weakness and R hand tremors, UTERINE AND CERVICAL CA 2005 THYROID CA 2003 BEGINNING OF CATARACTS bilaterally, LAST SEIZURE-2005, HAS LARGE LUMP TO RT LEG R/T RECENT FALL. BILAT GLAUCOMA History of Any Multi-Drug Resistant Organisms: None Reported Past Surgical History: Bariatric Surgery, Section, Hernia Repair, Hysterectomy, Joint Replacement, Orthopedic Surgery, Tonsillectomy Additional Past Surgical History / Comment(s): BILAT TKA, RT ROTATOR CUFF REPAIR, CYSTS REMOVED BILAT WRISTS,RT SKNEE SX X 2,THYROID SX,PAIN CLINIC PROCEDURES,BILAT EYE SX,GASTRIC BYPASS 1984,Laser surgery BILAT eye FOR GLAUCOMA, COLONOSCOPY AND EGD Past Anesthesia/Blood Transfusion Reactions: Previous Problems w/ Anesthesia, Postoperative Nausea & Vomiting (PONV) Additional Past Anesthesia/Blood Transfusion Reaction / Comment(s): difficulty arousing Past Psychological History: Anxiety, Depression Past Alcohol Use History: None Reported Past Drug Use History: None Reported - Past Family History Mother Family Medical History: Cancer diabetes, CHF, cancer, blood disease Family Medical History: Cancer, Diabetes Mellitus Medications and Allergies Home Medications Medication Instructions Recorded Confirmed Type Albuterol Sulfate [Ventolin HFA] 2 puff INHALATION RT-QID PRN 12/30/13 05/14/23 History Omeprazole 20 mg PO BID 12/30/13 05/14/23 History Aspirin EC [Ecotrin Low Dose] 81 mg PO DAILY 05/14/23 05/14/23 History Atorvastatin Calcium [Lipitor] 40 mg PO HS 05/14/23 05/14/23 History Cholecalciferol [Vitamin D3 (25 50 mcg PO DAILY 05/14/23 05/14/23 History Mcg = 1000 Iu)] Fluticasone Propionate 110 Mcg 2 puff INHALATION RT-BID 05/14/23 05/14/23 History [Flovent 110 Mcg Inhaler] Gabapentin(Unknown Dose) 1 dose PO DIRECTED 05/14/23 05/14/23 History Naproxen [Naprosyn] 500 mg PO BID PRN 05/14/23 05/14/23 History Unknown Bp Meds 1 dose PO DIRECTED 05/14/23 05/14/23 History levETIRAcetam [Keppra] 750 mg PO BID 05/14/23 05/14/23 History Allergies Allergy/AdvReac Type Severity Reaction Status Date / Time adhesive Allergy blisters Verified 05/14/23 17:06 and taylor skin Penicillins Allergy Rash/Hives Verified 05/14/23 17:06 morphine AdvReac Nausea & Verified 05/14/23 17:06 Vomiting Physical Exam Vitals: Vital Signs Temp Pulse Pulse Resp BP BP Pulse Ox 05/15/23 11:40 98.2 F 80 16 135/75 90 L 05/15/23 08:49 91 L 05/15/23 07:26 98.4 F 84 16 126/66 94 L 05/15/23 02:00 98.5 F 64 16 148/64 91 L 05/14/23 20:30 90 16 05/14/23 20:00 97.7 F 90 16 115/75 92 L 05/14/23 16:28 97.1 F L 105 H 24 135/90 90 L 05/14/23 15:07 104 H 18 138/106 93 L 05/14/23 13:57 26 H 05/14/23 13:49 91 L 05/14/23 13:39 97.1 F L 111 H 24 102/48 87 L Intake and Output 05/14/23 05/15/23 05/15/23 22:59 06:59 14:59 Intake Total 240 Output Total 100 13 Balance 140 -13 Intake: Oral 240 Output: Post Void Residual 13 Emesis 100 Other: # Voids 1 1 Weight 90.718 kg GENERAL EXAM: Alert, 62-year-old female, 2 L nasal cannula, fairly in no apparent distress. HEAD: Normocephalic. EYES: Normal reaction of pupils, equal size. NOSE: Clear with pink turbinates. THROAT: No erythema or exudates. NECK: No masses, no JVD. CHEST: No chest wall deformity. LUNGS: Equal air entry with lateral and x-ray wheeze, diminished. CVS: S1 and S2 normal with no audible murmur, regular rhythm. ABDOMEN: No hepatosplenomegaly, normal bowel sounds, no guarding or rigidity. SPINE: No scoliosis or deformity SKIN: No rashes CENTRAL NERVOUS SYSTEM: No focal deficits, tone is normal in all 4 extremities. EXTREMITIES: There is no peripheral edema. No clubbing, no cyanosis. Peripheral pulses are intact. Results - Laboratory Findings CBC and BMP: 05/14/23 18:18 05/14/23 18:18 PT/INR, D-dimer PT 10.7 sec (10.0-12.5) 05/14/23 18:18 INR 1.0 (<1.2) 05/14/23 18:18 Abnormal lab findings: Abnormal Labs 05/14/23 05/14/23 05/14/23 15:51 18:00 18:18 WBC 11.1 H RBC 5.70 H Hgb 17.6 H Hct 50.9 H Neutrophils # 9.8 H Lymphocytes # 0.5 L Sodium 136 L Potassium 5.9 H Carbon Dioxide 20 L BUN Creatinine 1.13 H Glucose 145 H POC Glucose (mg/dL) 136 H 05/14/23 05/14/23 05/15/23 18:18 19:47 07:30 WBC RBC Hgb Hct Neutrophils # Lymphocytes # Sodium 136 L Potassium 5.2 H Carbon Dioxide BUN 18 H Creatinine 1.32 H Glucose 140 H POC Glucose (mg/dL) 144 H 118 H 05/15/23 11:46 WBC RBC Hgb Hct Neutrophils # Lymphocytes # Sodium Potassium Carbon Dioxide BUN Creatinine Glucose POC Glucose (mg/dL) 119 H - Diagnostic Findings Chest x-ray: image reviewed CT scan - chest: image reviewed Assessment and Plan Assessment: Status post ground level trip and fall with injury to the left chest and noted a 10-15% left-sided pneumothorax and nondisplaced fracture of the left seventh rib Left-sided chest wall pain secondary to above, status post nerve block for anesthesia Acute exacerbation of chronic obstructive pulmonary disease Acute hypoxemic respiratory failure secondary to above Acute kidney injury suspect secondary to dehydration Chronic and ongoing tobacco dependence History of CVA with residual right-sided weakness History of thyroid cancer History of uterine/cervical cancer History of gastric bypass surgery Fibromyalgia Hypertension Hyperlipidemia History of seizure disorder History of arthritis Plan: The patient was seen and evaluated CAT scan of the chest, chest x-ray, labs and medications reviewed No plans for chest tube placement at this time We'll initiate DuoNeb inhalations, Symbicort, prednisone Add incentive spirometer and encourage cough and deep breathing exercises Educated regarding the importance of complete smoking cessation NicoDerm patch will be offered Titrate the FiO2 as tolerated Increase her activity as tolerated We will continue to follow and make further recommendations based on her clinical status I have personally seen and examined the patient, performed the documentation and the assessment and plan as written. Number of minutes spent on the visit: 20.
[2023-05-15] MEDS: NICOTINE 14MG/24HR PATCH TRANSDERM SCH (15:20)
[2023-05-15] MEDS: HYDROmorphone 1 MG/ML 1 ML SYRINGE IVP PRN (16:49)
[2023-05-15 17:15] LABS: Glucose,Whole Blood 134 mg/dL (70-110)
[2023-05-15 19:57] LABS: Glucose,Whole Blood 188 mg/dL (70-110)
[2023-05-15] MEDS ORDERED: ATORVASTATIN 40 MG TAB PO SCH (21:00)
[2023-05-15] MEDS: HEPARIN SODIUM,PORCINE 5,000 UNIT/ML 1 ML VIAL SQ SCH (21:48)
[2023-05-16] MEDS: ONDANSETRON 4 MG/2 ML VIAL IVP PRN ×2 (00:28→04:39)
[2023-05-16] MEDS: HYDROmorphone 1 MG/ML 1 ML SYRINGE IVP PRN (04:39)
[2023-05-16 07:06] LABS: Glucose,Whole Blood 89 mg/dL (70-110)
[2023-05-16] MEDS: SYMBICORT 160-4.5 MCG INHALER INHALATION SCH (07:39)
[2023-05-16] MEDS: IPRATROPIUM-ALBUTEROL 3 ML NEB INHALATION SCH ×3 (07:39→14:39)
--- NOTE | 2023-05-16 07:47 | P.PN ---
Progress Note - Text Progress Note Date: 05/16/23 Patient's feeling slightly better. She still has some chest wall pain. On exam vital signs appear stable. Abdomen soft. S post ground-level fall with left rib fracture with pneumothorax. Patient will be discharged home today. She'll follow-up in one week.
[2023-05-16] MEDS: GABAPENTIN 300 MG CAP PO SCH ×2 (08:56→13:39)
[2023-05-16] MEDS: HEPARIN SODIUM,PORCINE 5,000 UNIT/ML 1 ML VIAL SQ SCH (08:56)
[2023-05-16] MEDS: ASPIRIN 81 MG PO SCH (08:57)
[2023-05-16] MEDS: CHOLECALCIFEROL 25 MCG (1000 IU) TABLET PO SCH (08:57)
[2023-05-16] MEDS: PANTOPRAZOLE 40 MG TABLET PO SCH (08:57)
[2023-05-16] MEDS: predniSONE 20 MG TAB PO SCH (08:57)
[2023-05-16] MEDS: SERTRALINE 50 MG TAB PO SCH (08:57)
[2023-05-16] MEDS: METOPROLOL SUCCINATE (ER) 50 MG TAB.ER.24H PO SCH (08:57)
[2023-05-16] MEDS: NICOTINE 14MG/24HR PATCH TRANSDERM SCH (08:57)
[2023-05-16] MEDS ORDERED: amLODIPine 5 MG TAB PO SCH (09:00)
[2023-05-16 12:22] LABS: Glucose,Whole Blood 160 mg/dL (70-110)
--- NOTE | 2023-05-16 12:43 | P.PN ---
Subjective Progress Note Date: 05/16/23 This is a pleasant 62-year-old female patient with a known history of chronic and ongoing tobacco dependence, chronic obstructive pulmonary disease, seizure disorder, hypertension, hyperlipidemia, fibromyalgia, CVA/TIA with residual right-sided weakness anxiety/depression. Yesterday she tripped while walking to the garage and fell onto her left side onto a cement step. She was assisted up by family however the pain became unbearable and she presented here to the emergency room for the same. X-rays of the left shoulder although and hand were negative for fracture. Chest x-ray revealed chronic changes but no acute pulmonary process. Computed tomography scan of the chest did reveal a left- sided pneumothorax estimated at 10-15%. Small amount of subcutaneous air at the seventh rib interspace. Nondisplaced fracture of left rib #7. We're consulted for the same. She is seen today on the regular medical floor. Sitting up in bed. Awake and alert in no acute distress. She is maintaining O2 saturations in the 90s on 2 L/m per nasal cannula. She's afebrile. Hemodynamically stable. She is somewhat bronchospastic and wheezing. Pain is better controlled. She did receive a intercostal nerve block per anesthesia last night. White count 11.1. Hemoglobin 17.6. Platelets 190. Sodium 136. Potassium 5.2. Bicarb 23. BUN 18. Creatinine 1.32. Glucose 140. The patient is seen today 05/16/2023 in follow-up on the regular medical floor. She is currently sitting up in bed. Awake and alert in no acute distress. She is maintaining O2 saturations in the 90s on 2 L/m per nasal cannula. She's been afebrile. Hemodynamically stable. Her pain is better controlled. Working well with the incentive spirometer. Glucose 160. She is continued on Symbicort, DuoNeb inhalations, prednisone taper. NicoDerm patch in place. Heparin for DVT prophylaxis. Objective - Vital Signs Vital signs: Vital Signs Temp 97.3 F L 05/16/23 07:05 Pulse 89 05/16/23 10:54 Resp 19 05/16/23 08:00 BP 135/69 05/16/23 07:05 Pulse Ox 90 L 05/16/23 07:42 FiO2 Intake & Output 05/15/23 05/16/23 05/16/23 18:59 06:59 18:59 Intake Total 500 Output Total 150 Balance -150 500 Intake: Oral 500 Output: Emesis 150 Other: Voiding Method Bedside Commode Bedside Commode # Voids 3 2 # Bowel Movements 0 - Exam GENERAL EXAM: Alert, active, 62-year-old female, sitting up at the bedside, on 2 L nasal cannula, fairly in no apparent distress. HEAD: Normocephalic. EYES: Normal reaction of pupils, equal size. NOSE: Clear with pink turbinates. THROAT: No erythema or exudates. NECK: No masses, no JVD. CHEST: No chest wall deformity. LUNGS: Equal air entry with end expiratory wheeze, diminished. CVS: S1 and S2 normal with no audible murmur, regular rhythm. ABDOMEN: No hepatosplenomegaly, normal bowel sounds, no guarding or rigidity. SPINE: No scoliosis or deformity SKIN: No rashes CENTRAL NERVOUS SYSTEM: No focal deficits, tone is normal in all 4 extremities. EXTREMITIES: There is no peripheral edema. No clubbing, no cyanosis. Peripheral pulses are intact. - Labs CBC & Chem 7: 05/14/23 18:18 05/14/23 18:18 Labs: Abnormal Lab Results - Last 24 Hours (Table) 05/15/23 05/15/23 05/16/23 Range/Units 17:13 19:55 12:20 POC Glucose (mg/dL) 134 H 188 H 160 H (70-110) mg/dL Assessment and Plan Assessment: Status post ground level trip and fall with injury to the left chest and noted a 10-15% left-sided pneumothorax and nondisplaced fracture of the left seventh rib Left-sided chest wall pain secondary to above, status post nerve block for anesthesia Acute exacerbation of chronic obstructive pulmonary disease Acute hypoxemic respiratory failure secondary to above Acute kidney injury suspect secondary to dehydration Chronic and ongoing tobacco dependence History of CVA with residual right-sided weakness History of thyroid cancer History of uterine/cervical cancer History of gastric bypass surgery Fibromyalgia Hypertension Hyperlipidemia History of seizure disorder History of arthritis Plan: The patient was seen and evaluated Labs and medications reviewed Continue DuoNeb inhalations, Symbicort, prednisone Continue incentive spirometer and encourage cough and deep breathing exercises Again educated regarding the importance of smoking cessation NicoDerm patch in place Titrate the FiO2 as tolerated Increase her activity as tolerated Cleared for discharge from the pulmonary standpoint I have personally seen and examined the patient, performed the documentation and the assessment and plan as written. Number of minutes spent on the visit: 10.
[2023-05-16 13:42] VITALS: BP 104/71; RESP 20; TEMP 98.7
[2023-05-16 14:58] VITALS: PULSE 62
--- NOTE | 2023-05-16 15:41 | P.PN ---
Subjective Progress Note Date: 05/16/23 Principal diagnosis: Diagnosis: #1 fall on the cement steps was missing 2 steps landed on her left side. #2 pneumothorax secondary to above #3 left seventh rib fracture. #4 chronic smoker #5 advanced COPD with exacerbation. #6 severe pain associated with a fall #7 status post blocks by the anesthesia for the pain on T678. #8 seizure disorder treated by Dr. Case neurologist. Attending physician Dr. Stafford surgeon trauma Consulting physician Dr. Medina pulmonary and critical Primary care Dr. Mcadams Progress note Date of service 05/16/[address] Mcadams Patient seen today [id number] discussed with the patient Disposition: Attending physician trauma surgeon did discharge patient today and he prescribed for her OxyContin for pain. 62 years old white female seen today and evaluated she is a pO2 be after she had chart this morning lethargic and sleepy after the the effort she made, she using her oxygen 2 L/m and she needs oxygen with the hypoxemia. And prescription for oxygen given to have it with her at home. Patient has still rhonchi's and coughing up phlegm Patient still a smoker and she placed on patch nicotine patch once a day to be removed at night applied in the morning and prescription given today on discharge. Patient seen by pulmonary team Dr. Petersen and ANGI Gusman however no prescription was written recommended to be on prednisone 40 mg and cleared for discharge and to have and is incentive spirometry at home. Patient pulmonary and critical care Dr. Luther Mo who has been following the patient as outpatient and she preferred to continue with him. Prescription for the prednisone given and Precose I'll to her medication before discharge and discussed with her RN prior to discharge and follow-up with the physician needed including the urology. Patient still have the pain and her Dilantin has coaling her nausea and vomiting discontinued. She is now on OxyContin. Vital signs stable and will continue the home medication. And see her next week in 3 days. Also to see her primary pulmonary next week Head was normocephalic and atraumatic, she is sleepy. Neck was supple no JVD no thyromegaly no lymphadenopathy The chest rhonchi's bilateral with the underlying left pneumothorax as well as COPD exacerbation. Heart regular sinus rhythm Abdomen is soft positive bowel sounds Extremities no edema. Pulses Neurologically: No lateralizing sign no seizure during her hospitalization. Assessment: #1 patient discharge and by the trauma surgeon today home to follow-up with them in 1 week #2 she is now on oxygen therapy 2 L/m #3 to continue her bronchodilators and and the steroids. #4 continue her seizure medication for further adjustment and need to follow with Dr. Case the neurologist for adjustment. Plan: Today I did review her medication at home and the current medication and added the nicotine patch after discussion to stop smoking and given prescription for that. Discussed with her the prednisone to be continued for 5 days 40 mg as recommendation from pulmonary and critical. And we decreased her gabapentin to 300 mg 3 times a day until seen by Liborio Valencia. She will follow with Dr. Matamoros as outpatient as well for pneumothorax and rib fracture and the pain. Arranged for the oxygen for the patient and started before she goes home 2 L/m Time consumed 45-50% with the patient with the advice and discussion and the repair and the exam. And discussion with the nursing staff Objective - Vital Signs Vital signs: Vital Signs Temp 98.7 F 05/16/23 11:55 Pulse 62 05/16/23 14:48 Resp 20 05/16/23 11:55 BP 104/71 05/16/23 11:55 Pulse Ox 87 L 05/16/23 13:16 FiO2 Intake & Output 05/15/23 05/16/23 05/16/23 18:59 06:59 18:59 Intake Total 500 Output Total 150 Balance -150 500 Intake: Oral 500 Output: Emesis 150 Other: Voiding Method Bedside Commode Bedside Commode # Voids 3 2 # Bowel Movements 0 - Labs CBC & Chem 7: 05/14/23 18:18 05/14/23 18:18 Labs: Abnormal Lab Results - Last 24 Hours (Table) 05/15/23 05/15/23 05/16/23 Range/Units 17:13 19:55 12:20 POC Glucose (mg/dL) 134 H 188 H 160 H (70-110) mg/dL
[2023-05-16] MEDS ORDERED: GABAPENTIN 300 MG CAP PO SCH (16:00)
[2023-05-17] MEDS ORDERED: PANTOPRAZOLE 40 MG TABLET PO SCH (07:30)
== END 2023-05-16 17:47 | disposition home or self-care (01) ==
LOC: EC 13:38 → 5NMEDONC 15:56 → INTOOBSV 15:56 → 5NMEDONC 16:24 → UNDODISIN 05-16 17:47
PROVIDERS: ADMIT Surgery; ATTEND Surgery
DX: S22.32XA Fracture of one rib, left side, initial encounter for closed fracture (principal); S27.0XXA Traumatic pneumothorax, initial encounter; J44.1 Chronic obstructive pulmonary disease with (acute) exacerbation; J96.01 Acute respiratory failure with hypoxia; N17.9 Acute kidney failure, unspecified; M79.7 Fibromyalgia; K21.9 Gastro-esophageal reflux disease without esophagitis; E78.5 Hyperlipidemia, unspecified; I10 Essential (primary) hypertension; F17.200 Nicotine dependence, unspecified, uncomplicated; R41.3 Other amnesia; M19.90 Unspecified osteoarthritis, unspecified site; M06.9 Rheumatoid arthritis, unspecified; G47.30 Sleep apnea, unspecified; G40.909 Epilepsy, unspecified, not intractable, without status epilepticus; F41.9 Anxiety disorder, unspecified; F32.A Depression, unspecified; Z91.048 Other nonmedicinal substance allergy status; I69.351 Hemiplegia and hemiparesis following cerebral infarction affecting right dominant side; W01.0XXA Fall on same level from slipping, tripping and stumbling without subsequent striking against object, initial encounter; Z85.850 Personal history of malignant neoplasm of thyroid; Z85.42 Personal history of malignant neoplasm of other parts of uterus; Z98.84 Bariatric surgery status; Z79.82 Long term (current) use of aspirin; Z79.899 Other long term (current) drug therapy; Z88.0 Allergy status to penicillin; Z88.5 Allergy status to narcotic agent; Z83.3 Family history of diabetes mellitus; Z82.49 Family history of ischemic heart disease and other diseases of the circulatory system; Z80.9 Family history of malignant neoplasm, unspecified
CPT/HCPCS: 96376 ×4; 96372 ×2; 96374; 96375; 99285; 94640 ×4; 94760 ×2; 93005; 80053; 80048; 85025; 85610; 85730; 73030; 73080; 73130; 71045 ×2; 71250; G0378 ×3; G0390; S4990 ×2; J1644 ×2; J2405 ×2; J1170 ×3; J7512 ×2

== ENCOUNTER → 2024-06-28 | Outpatient (CLI) | payer OTHER ==
--- NOTE | 2024-06-28 11:59 | CTL ---
EXAMINATION TYPE: CT Low Dose Lung DATE OF EXAM ORDERED: 06/28/2024 COMPARISON: Chest CT May 14, 2023 CLINICAL INDICATION: Female, 63 years old with history of Z12.2, F17.210; PHH, PERSONAL HX OF NICOTIN E DEPENDENCE 2PPD X 40 YEARS CURRENT SMOKER, Lung cancer screening, History of Smoking/tobacco use. TECHNIQUE: Low dose computed tomography scan was performed through the chest at 1 mm thick sections a nd reconstructed images in multiple planes at 1 mm and [address] DLP: [address] CTDI: 2.72 mGy Automated exposure control for dose reduction was used. CT DIAGNOSTIC QUALITY: Satisfactory FINDINGS: Nodules: RUL: None. RML: None. RLL: None. MAGDI: None. LLL: None. LUNGS: COPD: Severity: None Fibrosis: Severity: Mild scarring in the lingula Lymph nodes: None Other findings: None RIGHT PLEURAL SPACE: Effusion: None Calcification: None Thickening: None Pneumothorax: None LEFT PLEURAL SPACE: Effusion: None Calcification: None Thickening: None Pneumothorax: None HEART: Heart Size: Normal Coronary Calcification: Moderate Pericardial Effusion: None OTHER FINDINGS: Upper abdomen: Surgical changes from gastric sleeve Bony thorax: Slight S-shaped scoliotic curvature. Prominent Schmorl node superior T12 endplate. Supraclavicular region: None Other: None IMPRESSION: No suspicious nodules. CT LUNG RAD AND CT CHEST RECOMMENDATION: Lung-Rad 1 Negative: Continue annual screening with LDCT in 12 months. S Modifier (other clinically significant findings): S At least moderate three-vessel coronary artery calcification should be correlated with additional car diac risk factors. [facility], , 06/28/2024 11:57 AM
== END | disposition home or self-care (01) ==
LOC: RADCTMAIN 09:35
PROVIDERS: ATTEND Internal Medicine
DX: Z12.2 Encounter for screening for malignant neoplasm of respiratory organs (principal); F17.210 Nicotine dependence, cigarettes, uncomplicated
CPT/HCPCS: 71271